=== PATIENT | female | born 1975 | race Asian ===

== ENCOUNTER 2016-10-03 16:32 | Inpatient (IN) | payer OTHER ==
[~2016-10-03] VITALS: Ht 152.4 cm; Wt 69.8 kg
[~2016-10-03 16:32] MED LIST: CALC600T11 PO; FERR240T9 PO; FOLI0.4T2 PO; IBUP800T25 PO; PERCOCET PO; PRENAT PO
[2016-10-03 17:02] VITALS: Ht 152.4 cm; Wt 69.8 kg
[2016-10-03 17:03] VITALS: BP 114/68; PULSE 120; RESP 18
[2016-10-03] MEDS ORDERED: TERBUTALINE 1 MG/ML INJ SC ONE (18:00)
[2016-10-03] MEDS: LACTATED RINGER'S 1,000 ML IV* SCH (18:09)
--- NOTE | 2016-10-03 18:21 | RADRPT ---
PROCEDURE: OB ultrasound for biophysical profile CLINICAL INDICATION: labor. TECHNIQUE: Multiple sonographic images of the pelvis were obtained. Transabdominal view of the gr avid uterus are available for review. The images were reviewed on a PACS workstation. COMPARISON: None FINDINGS: breathing movement = 2/2 tone = 2/2 motion = 2/2 Quantitative amniotic fluid volume = 2/2 TL = 26.3 cm consistent with polyhydramnios. Single live intrauterine with cardiac activity at 158 beats per minute. There is a posterior placenta without previa. IMPRESSION: 1. Single living intrauterine gestation in cephalic position. 2. Biophysical profile = 8/8. 3. TL = 26.3 cm consistent with polyhydramnios. RPTAT: [facility] Physician Keaton Date Time Electronically viewed and signed by Physician Keaton on 10/03/2016 18:21 /
[2016-10-03 18:26] LABS: ABNORMAL IP MESSAGE 1; ADD SCAN DIFF NO; BASOPHILS % 0.2 % (0.0-2.0); EOSINOPHILS % 0.3 % (0.0-7.0); HEMATOCRIT 35.1 % (37.0-47.0); HEMOGLOBIN 12.2 g/dl (12.0-16.0); LYMPHOCYTES # 0.5 10^3/ul (0.8-2.9); MEAN CORPUSCULAR HEMOGLOBIN 33.3 pg (29.0-33.0); MEAN CORPUSCULAR HGB CONC 34.8 g/dl (32.0-37.0); MEAN CORPUSCULAR VOLUME 95.9 fl (82.0-101.0); MEAN PLATELET VOLUME 10.2 fl (7.4-10.4); MONOCYTE # 0.4 10^3/ul (0.3-0.9); NEUTROPHIL # 5.5 10^3/ul (1.6-7.5); PLATELET COUNT 167 10^3/UL (140-415); RED BLOOD COUNT 3.66 10^6/ul (4.20-5.40); RED CELL DISTRIBUTION WIDTH 14.9 % (11.5-14.5); WHITE BLOOD COUNT 6.5 10^3/ul (4.8-10.8)
[2016-10-03 18:39] LABS: ADD UMIC YES; URINE BILIRUBIN (Dip) NEGATIVE (NEGATIVE); URINE BLOOD (Dip) NEGATIVE (NEGATIVE); URINE COLOR LT. YELLOW (YELLOW); URINE GLUCOSE (Dip) NEGATIVE (NEGATIVE); URINE KETONES (Dip) 40 (NEGATIVE); URINE LEUKOCYTE ESTERASE (Dip) 2+ (NEGATIVE); URINE NITRITE (Dip) NEGATIVE (NEGATIVE); URINE TOTAL PROTEIN (Dip) NEGATIVE (NEGATIVE); URINE UROBILINOGEN (Dip) 0.2 E.U./dL (0.1-1.0)
[2016-10-03 18:52] LABS: SQUAMOUS EPITHELIAL CELL,UR FEW; URINE RBCS NONE SEEN /HPF (0)
[2016-10-03] MEDS ORDERED: SOD CHLORIDE 0.9% 1,000 ML IV SCH (19:52)
[2016-10-03] MEDS ORDERED: AL HYDROX/MG HYDROX/SIMETH 30 ML CUP PO PRN (20:00)
[2016-10-03] MEDS ORDERED: BETAMET NA PHOS/AC(6 MG/ML) 5ML INJ IM SCH (20:00)
[2016-10-03] MEDS ORDERED: ACETAMINOPHEN 325 MG TAB PO PRN (20:00)
[2016-10-03] MEDS ORDERED: MAGNESIUM SULFATE 4 GM/100 ML 100 ML IV ONE (20:00)
--- NOTE | 2016-10-03 20:05 | HP ---
Date/Time of Note Date/Time of Note DATE: 10/03/16 TIME: 19:57 OB - History Hx of Present Free Text/Dictation 41 y/o female at 34 weeks referred to triage C/O fever since yesterday ; denies GI and symptoms Claims she has been congested chronically Last Menstrual Period: Feb 03, 2016 Estimated Due Date: Nov 08, 2016 : 2 Para: 1 Care: Good Care Ultrasounds: Normal mid trimester US Obstetrical Complications: Other (AMA) Medical Complications: None Past Family/Social History * Past Medical, Surgical, Family and Obstetric Histories reviewed from chart. Blood Type: O+ Rubella: immune RPR/VDRL: Negative GBS Status: Unknown HBsAG: Negative OB Admission Exam Vital Signs Vital Signs Vital Signs Date Time Temp Pulse Resp B/P Pulse Ox O2 Delivery O2 Flow Rate FiO2 10/03/16 17:03 98.7 120 18 114/68 Room Air Physical Exam HEENT: WNL Heart: Rhythm Normal Lungs: Clear, Equal Abdomen: WNL Extremities: Normal Reflexes: Normal Cervical Dilatation: Fingertip Effacement: 0% Station: -3 Membranes: Intact Heart Rate: 150's Accelerations: Accelerations Present Decelerations: No Decelerations Varibility: Moderate Contractions on Admission: < 5 Minutes Apart Date/Time Contractions Began: ? Frequency of Contractions: ? Duration: ? Intensity: Mild Last 72 hours Lab Results CBC & BMP 10/03/16 18:00 OB Assessment/Plan Reason for admission: labor Other Assessment: 34 weeks gestation AMA ?UTI(left shift on CBC) uterine contractions Other plan: start on IV ABs and Magnesium sulfate steroids for lung maturity RITU AGRAWAL MD October 03, 2016 20:04
[2016-10-03 20:17] LABS: ALBUMIN 3.4 g/dl (3.3-4.9)
[2016-10-03 20:18] LABS: POTASSIUM 3.9 mmol/L (3.5-5.1)
[2016-10-03 20:19] LABS: INR 1.07; PROTIME 13.9 Sec (12.2-14.2); PT RATIO 1.1
[2016-10-03 20:20] LABS: BILIRUBIN,INDIRECT 0.7 mg/dl (0-1.1); BILIRUBIN,TOTAL 0.7 mg/dl (0.2-1.3); CREATININE 0.45 mg/dl (0.44-1.00); PARTIAL THROMBOPLASTIN TIME 31.5 Sec (25.0-35.0)
[2016-10-03 20:21] LABS: ALBUMIN/GLOBULIN RATIO 1.06; CALCIUM 8.1 mg/dl (8.4-10.2); TOTAL PROTEIN 6.6 g/dl (6.1-8.1)
[2016-10-03] MEDS ORDERED: MAGNESIUM SULFATE 20 GM/500 ML 500 ML IV SCH (20:30)
--- NOTE | 2016-10-03 21:22 | TRIAGE ---
OB Triage Datetime Report Generated by CPN: 10/03/2016 21:22 Datetime: 10/03/2016 19:50 Monitor Mode: External US FHR Baseline Changes: No Baseline Change Variability: Moderate 6-25 bpm Accelerations: 15X15 Decelerations: None Category: Category I Datetime: 10/03/2016 19:20 Stage of : OB Triage Maternal Assessment Level of Consciousness: Fully Conscious Headache: Denies Blurred Vision: No Respiratory Effort: Unlabored Nausea/Vomiting: Denies RUQ Epigastric Pain: Denies Facial Edema: None Labor Evaluation Frequency: 2-5 Monitor Mode: External Duration (sec)2399: 60-90 Quality: Mild Pattern: Normal: <= 5 Contractions in 10 Minutes Resting Tone [place]: Relaxed Heart Rate FHR Baseline Rate: 145 Monitor Mode: External US FHR Baseline Changes: No Baseline Change Variability: Moderate 6-25 bpm Accelerations: 15X15 Decelerations: None Category: Category I Pain Assessment Pain Scale: 3 Pain Presence: Intermittent Pain Type: Cramping Pain Location: Abdomen Datetime: 10/03/2016 19:00 Stage of : OB Triage Maternal Assessment Level of Consciousness: Fully Conscious Labor Evaluation Frequency: 2-7 Monitor Mode: External Duration (sec)2399: 60-150 Quality: Mild Resting Tone [place]: Relaxed Heart Rate FHR Baseline Rate: 145 Monitor Mode: External US Variability: Moderate 6-25 bpm Accelerations: 15X15 Decelerations: None Pain Assessment Pain Scale: 0 Pain Presence: None/Denies Pain Goal: 3 Membrane Status: Intact Vaginal Bleeding: None Datetime: 10/03/2016 18:20 Vaginal Exam Dilatation (cms): 1.0 Effacement (%): 40 Station: -2 Exam By: omi Vaginal Bleeding: None Cervix, Consistency: Firm Cervix, Position: Midposition Datetime: 10/03/2016 18:00 Stage of : OB Triage Maternal Assessment Level of Consciousness: Fully Conscious Labor Evaluation Frequency: 2-13 Monitor Mode: External Quality: Mild Resting Tone [place]: Relaxed Heart Rate FHR Baseline Rate: 145 Monitor Mode: External US Variability: Moderate 6-25 bpm Accelerations: 15X15 Decelerations: None Category: Category I Pain Assessment Pain Scale: 0 Pain Presence: None/Denies Pain Goal: 3 Membrane Status: Intact Vaginal Bleeding: None Datetime: 10/03/2016 16:56 Assessment Type: Triage Maternal Assessment Level of Consciousness: Fully Conscious DTR's/Clonus: DTRs 2+; No Clonus Headache: Denies Blurred Vision: No Respiratory Effort: Unlabored; Regular Rhythm; Equal Expansion Breath Sounds, Left: Clear and Equal Breath Sounds, Right: Clear and Equal Nausea/Vomiting: Denies RUQ Epigastric Pain: Denies Lower Extremities Edema: None Degree: None Upper Extremities Edema: None Degree: None Facial Edema: None Fall Risk Assessment History of Falling: (0) No Secondary Diagnosis: (0) No Ambulatory Aid: (0) Bedrest/Nurse Assist IV Therapy: (0) No Gait: (0) Normal/Bedrest/Immobile Mental Status: (0) Oriented to Own Ability Fall Score: 0 Fall Risk Score Definition: No Risk: No action required Datetime: 10/03/2016 16:51 Time of Arrival: 10/03/2016 16:25 EGA: 34.6 Arrived By: Ambulatory Arrived From: Home Chief Complaint: PT HERE C/O CHILLS AND "FEELING FEVERISH" Movement: Decreased Contractions: Denies/Absent Rupture of Membranes: Denies Vaginal Bleeding: None Vaginal Discharge: Denies Recent Sexual Intercouse: Denies Abdominal Trauma: Not Applicable Patient Complaints: None Time Provider Notified: 10/03/2016 17:45 Provider Notified: MIA Initial Plan: IV HYDRATION, SVE, CBC, UA, TERB, BPP Datetime: 10/03/2016 16:49 Monitor Mode: External Monitor Mode: External US
[2016-10-03] MEDS ORDERED: SENNA TAB PO SCH (22:00)
[2016-10-03] MEDS ORDERED: MAGNESIUM HYDROXIDE 30ML CUP PO PRN (22:00)
[2016-10-03] MEDS: CEFTRIAXONE 1 GM/50 ML (PMX) 50 ML IVPB SCH (23:03)
[2016-10-04] MEDS: LACTATED RINGER'S 1,000 ML IV* SCH ×3 (00:40→20:40)
--- NOTE | 2016-10-04 06:32 | RADRPT ---
PROCEDURE: OB ultrasound for biophysical profile CLINICAL INDICATION: labor TECHNIQUE: Multiple sonographic images of the pelvis were obtained. Transabdominal views of the g ravid uterus are available for review. The images were reviewed on a PACS workstation. COMPARISON: None FINDINGS: breathing movement = 2/2 tone = 2/2 motion = 2/2 TL = 2/2 (single pocket greater than 2 cm) TL = 22.9 cm Single live intrauterine with cardiac activity of 118 bpm. position is cephal ic. The placenta is posterior. IMPRESSION: 1. Single live intrauterine gestation. 2. Biophysical profile = 8. 3. TL = 22.9 cm. RPTAT: HH .Demi Noland MD, Date Time Electronically viewed and signed by .Demi Noland MD, on 10/04/2016 06:31 .G/
[2016-10-04] MEDS ORDERED: SENNA TAB PO SCH (09:00)
[2016-10-04] MEDS ORDERED: FERROUS SULFATE (EC) 325 MG TAB PO SCH (09:00)
[2016-10-04] MEDS ORDERED: MULTIVIT/MIN/FOLATE/IRON/PREN TAB PO SCH (09:00)
[2016-10-04] MEDS ORDERED: DOCUSATE SODIUM 100 MG CAP PO SCH (09:00)
[2016-10-04] MEDS ORDERED: DOCUSATE SODIUM 100 MG CAP PO PRN (12:30)
[2016-10-04] MEDS ORDERED: ACETAMINOPHEN 325 MG TAB PO PRN (12:30)
[2016-10-04] MEDS ORDERED: AL HYDROX/MG HYDROX/SIMETH 30 ML CUP PO PRN (12:30)
--- NOTE | 2016-10-04 17:49 | QN ---
Documentation Comment No C/O U/C on EFM no U/C seen will D/C gome on PO Nifedipine RITU AGRAWAL MD October 04, 2016 17:49
--- NOTE | 2016-10-04 18:10 | DS ---
Date/Time of Note Date/Time of Note DATE: 10/04/16 TIME: 18:08 Obstetrical Discharge Record Final Diagnosis Final Diagnosis: not delivered Other Final Diagnosis contractions Complications Tocolytics: Magnesium Sulfate, Other (Nifedipine ) Condition on Discharge Physical Assessment Voiding: Yes Bowel Movement: Yes Breast: Soft, non-tender, Filling Fundus: Other (gravid ) Abdomen and Incision: Soft BS : Gravid Episiotomy: NA Calf Tenderness: No Patient Condition: Good RITU AGRAWAL MD October 04, 2016 18:10
--- NOTE | 2016-10-04 18:13 | PD.PPDC ---
[facility] [employer] [employer] Discharge Instruction Provider Information Physician Information 41 y/o female at 34 + weeks admitted for labor which subsided Diagnosis Final Diagnosis: labor: resolved Condition Patient Condition: Good Activity/Restrictions Activity: Bedrest May Shower Restrictions: No Exercising No Lifting Nothing in the Vagina Follow-up Follow-up with Physician: 1, Week/Weeks (in clinic ) Return to clinic for DIE WELDER Instructions: Worsening abdominal pain Excessive Vaginal Bleeding RITU AGRAWAL MD October 04, 2016 18:13
[2016-10-04] MEDS: NIFEdipine 10 MG CAP PO SCH ×2 (18:26→23:41)
[2016-10-04] MEDS ORDERED: NIFEdipine 10 MG CAP PO SCH (18:30)
[2016-10-04 19:07] LABS: ADD SCAN DIFF NO
[2016-10-04 19:09] LABS: ABNORMAL IP MESSAGE 1; HEMATOCRIT 32.5 % (37.0-47.0); LYMPHOCYTES # 0.5 10^3/ul (0.8-2.9); LYMPHOCYTES % 12.9 % (15.0-51.0); MEAN CORPUSCULAR HEMOGLOBIN 32.6 pg (29.0-33.0); MEAN CORPUSCULAR HGB CONC 33.8 g/dl (32.0-37.0); MEAN CORPUSCULAR VOLUME 96.4 fl (82.0-101.0); MEAN PLATELET VOLUME 9.6 fl (7.4-10.4); MONOCYTE # 0.3 10^3/ul (0.3-0.9); MONOCYTES % 6.5 % (0.0-11.0); NEUTROPHIL # 3.2 10^3/ul (1.6-7.5); NEUTROPHILS % 79.9 % (39.0-77.0); PLATELET COUNT 168 10^3/UL (140-415); RED BLOOD COUNT 3.37 10^6/ul (4.20-5.40); RED CELL DISTRIBUTION WIDTH 15.1 % (11.5-14.5)
[2016-10-04] MEDS ORDERED: BETAMET NA PHOS/AC(6 MG/ML) 5ML INJ IM SCH ×2 (20:00→23:00)
[2016-10-04] MEDS: CEFTRIAXONE 1 GM/50 ML (PMX) 50 ML IVPB SCH (21:07)
[2016-10-04] MEDS: SOD CHLORIDE 0.9% 1,000 ML IV SCH (21:07)
[2016-10-05] MEDS: LACTATED RINGER'S 1,000 ML IV* SCH (03:20)
[2016-10-05] MEDS: SOD CHLORIDE 0.9% 1,000 ML IV SCH (05:00)
[2016-10-05] MEDS: NIFEdipine 10 MG CAP PO SCH (06:12)
[2016-10-05] MEDS ORDERED: DOCUSATE SODIUM 100 MG CAP PO PRN (09:00)
[2016-10-05] MEDS ORDERED: FERROUS SULFATE (EC) 325 MG TAB PO SCH (09:00)
[2016-10-05] MEDS ORDERED: MULTIVIT/MIN/FOLATE/IRON/PREN TAB PO SCH (09:00)
[2016-10-05] MEDS ORDERED: BETAMET NA PHOS/AC(6 MG/ML) 5ML INJ IM SCH (20:00)
== END 2016-10-05 09:53 | disposition home or self-care (01) | DRG 780 ==
LOC: OBT 16:32 → L-D 16:33 → OBG 19:50 → OBT 19:50 → L-D 21:33 → OBG 23:21
PROVIDERS: ADMIT Obstetrics & Gynecology; ATTEND Obstetrics & Gynecology
DX: O47.03 False labor before 37 completed weeks of gestation, third trimester (principal); O09.523 Supervision of elderly multigravida, third trimester; Z3A.34 34 weeks gestation of pregnancy
CPT/HCPCS: 36415; 76818; 80053; 81001; 81003; 83735; 85025; 85610; 85730; 86900; 86901; 87040; 87086; 96360; 96361; G0463; J0696; J0702; J3105; J3475; J7030; J7120

== ENCOUNTER 2016-10-11 13:10 | Outpatient (CLI) | payer OTHER ==
[~2016-10-11] VITALS: Ht 165.1 cm; Wt 68.6 kg
[~2016-10-11 13:10] MED LIST changes: -FOLI0.4T2 PO; -IBUP800T25 PO; -PERCOCET PO
[2016-10-11] MEDS ORDERED: PRO20 PO (13:31)
[2016-10-11] MEDS ORDERED: NITR-58 PO (13:31)
[2016-10-11 13:32] VITALS: BP 118/74; PULSE 107; RESP 18; Ht 165.1 cm; Wt 68.6 kg
--- NOTE | 2016-10-11 14:11 | RADRPT ---
PROCEDURE: OB ultrasound for biophysical profile CLINICAL INDICATION: Contractions TECHNIQUE: Multiple sonographic images of the pelvis were obtained. Transabdominal view of the gr avid uterus are available for review. The images were reviewed on a PACS workstation. COMPARISON: OB ultrasound 10/04/2016 FINDINGS: breathing movement = 2/2 tone = 2/2 motion = 2/2 TL = 2/2 TL = 23.5 cm consistent with borderline polyhydramnios. Single live intrauterine with cardiac activity. heart rate equals 134 beats p er minute. Presentation is cephalic. The placenta is posterior. IMPRESSION: 1. Single viable intrauterine gestation. 2. Biophysical profile = 8/8. 3. TL = 23.5 cm. RPTAT: KK .Toby Gurrola MD, MD Date Time Electronically viewed and signed by .Toby Gurrola MD, MD on 10/11/2016 14:10 .B/
[2016-10-11 15:11] LABS: ADD SCAN DIFF NO
[2016-10-11 15:13] LABS: BASOPHILS % 0.4 % (0.0-2.0); EOSINOPHILS % 0.7 % (0.0-7.0); HEMOGLOBIN 12.9 g/dl (12.0-16.0); LYMPHOCYTES # 1.8 10^3/ul (0.8-2.9); LYMPHOCYTES % 31.8 % (15.0-51.0); MEAN CORPUSCULAR HEMOGLOBIN 33.7 pg (29.0-33.0); MEAN CORPUSCULAR HGB CONC 35.8 g/dl (32.0-37.0); MEAN PLATELET VOLUME 10.4 fl (7.4-10.4); MONOCYTE # 0.4 10^3/ul (0.3-0.9); MONOCYTES % 6.2 % (0.0-11.0); NEUTROPHIL # 3.4 10^3/ul (1.6-7.5); NEUTROPHILS % 60.5 % (39.0-77.0); PLATELET COUNT 220 10^3/UL (140-415); RED BLOOD COUNT 3.83 10^6/ul (4.20-5.40); RED CELL DISTRIBUTION WIDTH 13.8 % (11.5-14.5); WHITE BLOOD COUNT 5.6 10^3/ul (4.8-10.8)
[2016-10-11 15:16] LABS: ADD UMIC YES; URINE BILIRUBIN (Dip) 1+ (NEGATIVE); URINE BLOOD (Dip) NEGATIVE (NEGATIVE); URINE COLOR AMBER (YELLOW); URINE GLUCOSE (Dip) NEGATIVE (NEGATIVE); URINE KETONES (Dip) NEGATIVE (NEGATIVE); URINE LEUKOCYTE ESTERASE (Dip) 1+ (NEGATIVE); URINE NITRITE (Dip) NEGATIVE (NEGATIVE); URINE TOTAL PROTEIN (Dip) TRACE (NEGATIVE); URINE UROBILINOGEN (Dip) 0.2 E.U./dL (0.1-1.0)
[2016-10-11 15:25] LABS: ICTOTEST POSITIVE (NEGATIVE); URINE RBCS 0-2 /HPF (0)
[2016-10-11 15:26] LABS: BACTERIA,URINE OCCASIONAL
[2016-10-11 15:29] LABS: ALBUMIN 3.1 g/dl (3.3-4.9)
[2016-10-11 15:32] LABS: BILIRUBIN,INDIRECT 0.1 mg/dl (0-1.1); BILIRUBIN,TOTAL 0.1 mg/dl (0.2-1.3); CREATININE 0.53 mg/dl (0.44-1.00); TOTAL PROTEIN 6.2 g/dl (6.1-8.1)
[2016-10-11 15:33] LABS: CALCIUM 8.4 mg/dl (8.4-10.2); URIC ACID 6.6 mg/dl (3.1-7.9)
[2016-10-11 15:46] LABS: INR 0.84; PARTIAL THROMBOPLASTIN TIME 28.3 Sec (25.0-35.0); PROTIME 11.5 Sec (12.2-14.2); PT RATIO 0.9
[2016-10-11 16:05] LABS: FIBRIN SPLIT PRODUCT <10 ug/ml (<10)
--- NOTE | 2016-10-11 16:17 | QN ---
Documentation Comment 41 y/o female here for ? PIH currently asymptomatic ie( noheadache , blurred vision or epigastric pain) NST R BPP 8/8 TL>20cm patient has trace proteinuria and uric acid is 6.6 mild PIH can not be ruled out will place patient on bed rest and obtain 24hr urine collection for protein and creatinine clearance needs antepartum testing biweekly RITU AGRAWAL MD October 11, 2016 16:17
--- NOTE | 2016-10-11 17:01 | TRIAGE ---
OB Triage Datetime Report Generated by CPN: 10/11/2016 17:00 Datetime: 10/11/2016 15:30 Stage of : OB Triage Maternal Assessment Level of Consciousness: Fully Conscious Labor Evaluation Frequency: 6UC/HR Monitor Mode: External Duration (sec)2399: 100-120 Quality: Mild Resting Tone [place]: Relaxed Heart Rate FHR Baseline Rate: 125 Monitor Mode: External US Variability: Moderate 6-25 bpm Accelerations: 15X15 Decelerations: Variable Comments: DR. MIA NOTIFIED OF VARIABLE DECEL. Pain Assessment Pain Scale: 0 Pain Goal: 3 Vaginal Exam Membrane Status: Intact Vaginal Bleeding: None Datetime: 10/11/2016 14:30 Stage of : OB Triage Maternal Assessment Level of Consciousness: Fully Conscious Labor Evaluation Frequency: 10-12 Monitor Mode: External Duration (sec)2399: 100-120 Quality: Mild Resting Tone [place]: Relaxed Heart Rate FHR Baseline Rate: 125 Monitor Mode: External US Variability: Moderate 6-25 bpm Accelerations: 15X15 Decelerations: None Pain Assessment Pain Scale: 0 Pain Goal: 3 Vaginal Exam Membrane Status: Intact Vaginal Bleeding: None Datetime: 10/11/2016 13:28 Assessment Type: Ongoing Assessment Maternal Assessment Level of Consciousness: Fully Conscious DTR's/Clonus: DTRs 2+; No Clonus Headache: Denies Blurred Vision: No Respiratory Effort: Unlabored; Regular Rhythm; Equal Expansion Breath Sounds, Left: Clear and Equal Breath Sounds, Right: Clear and Equal Nausea/Vomiting: Denies RUQ Epigastric Pain: Denies Lower Extremities Edema: None Degree: None Upper Extremities Edema: None Degree: None Facial Edema: None Fall Risk Assessment History of Falling: (0) No Secondary Diagnosis: (0) No Ambulatory Aid: (0) Bedrest/Nurse Assist IV Therapy: (0) No Gait: (0) Normal/Bedrest/Immobile Mental Status: (0) Oriented to Own Ability Fall Score: 0 Fall Risk Score Definition: No Risk: No action required Datetime: 10/11/2016 13:26 Time of Arrival: 10/11/2016 13:00 EGA: 36.0 Arrived By: Ambulatory Arrived From: [facility] Chief Complaint: PT SENT IN FOR R/O PTL Movement: Present Contractions: Denies/Absent Rupture of Membranes: Denies Vaginal Bleeding: None Vaginal Discharge: Denies Recent Sexual Intercouse: Denies Abdominal Trauma: Not Applicable Patient Complaints: None Provider Notified: MIA Initial Plan: NST/BPP/PIH PANEL Datetime: 10/11/2016 13:23 Monitor Mode: External Monitor Mode: External US Datetime: 10/05/2016 08:32 Stage of : Antepartum Heart Rate FHR Baseline Rate: 115 Monitor Mode: External US Variability: Moderate 6-25 bpm Accelerations: 15X15 Decelerations: None Category: Category I Comments: fht's verified through pulse ox and rn can audibly hear fht's Pain Assessment Pain Scale: 0 Pain Presence: None/Denies Datetime: 10/05/2016 08:31 Assessment Type: Ongoing Assessment Maternal Assessment Level of Consciousness: Fully Conscious Maternal Assessment Level of Consciousness: Fully Conscious DTR's/Clonus: DTRs 2+; No Clonus Headache: Denies Headache: Denies Blurred Vision: No Blurred Vision: No Respiratory Effort: Unlabored; Regular Rhythm; Equal Expansion Respiratory Effort: Unlabored Breath Sounds, Left: Clear and Equal Breath Sounds, Left: Clear and Equal Breath Sounds, Right: Clear and Equal Breath Sounds, Right: Clear and Equal Nausea/Vomiting: Denies Nausea/Vomiting: Denies RUQ Epigastric Pain: Denies RUQ Epigastric Pain: Denies Lower Extremities Edema: None Degree: None Upper Extremities Edema: None Degree: None Facial Edema: None Fall Risk Assessment History of Falling: (0) No Secondary Diagnosis: (0) No Ambulatory Aid: (0) Bedrest/Nurse Assist Gait: (0) Normal/Bedrest/Immobile Mental Status: (0) Oriented to Own Ability Datetime: 10/05/2016 08:09 Heart Rate FHR Baseline Rate: 115 Variability: Moderate 6-25 bpm Accelerations: 15X15 Decelerations: None Datetime: 10/05/2016 08:04 Heart Rate FHR Baseline Rate: 120 Variability: Moderate 6-25 bpm Accelerations: 15X15 Datetime: 10/05/2016 07:00 Stage of : Antepartum Labor Evaluation Frequency: OCC Monitor Mode: External Duration (sec)2399: 40 Quality: Mild Resting Tone [place]: Relaxed Contraction Comments: IRRITABILITY NOTED Heart Rate FHR Baseline Rate: 110 Monitor Mode: External US Variability: Moderate 6-25 bpm Accelerations: 15X15 Decelerations: None Category: Category I Datetime: 10/05/2016 06:12 Pain Assessment Pain Scale: 0 Pain Presence: None/Denies Pain Type: N/A Pain Assessment Comments: PT DENIES FEELING ANY PAIN, UC'S OR CRAMPING. PT STATES SHE IS ABLE TO S LEEP Datetime: 10/05/2016 06:00 Stage of : Antepartum Labor Evaluation Frequency: IRREG Monitor Mode: External Duration (sec)2399: 50-160 Quality: Mild Resting Tone [place]: Relaxed Contraction Comments: IRRITABILITY NOTED Heart Rate FHR Baseline Rate: 110 Monitor Mode: External US Variability: Moderate 6-25 bpm Accelerations: 15X15 Decelerations: None Category: Category I Datetime: 10/05/2016 05:00 Stage of : Antepartum Labor Evaluation Frequency: x4 Monitor Mode: External Duration (sec)2399: 50-120 Quality: Mild Resting Tone [place]: Relaxed Contraction Comments: IRRITABILITY NOTED Heart Rate FHR Baseline Rate: 115 Monitor Mode: External US FHR Baseline Changes: No Baseline Change Variability: Moderate 6-25 bpm Accelerations: 15X15 Decelerations: None Category: Category I Datetime: 10/05/2016 04:45 Pain Assessment Pain Scale: 0 Pain Presence: None/Denies Pain Type: N/A Pain Goal: 0 Pain Assessment Comments: pt states she is not feeling anymore cramping "just the big one an hour ago _ baby moving" Datetime: 10/05/2016 04:00 Stage of : Antepartum Labor Evaluation Frequency: x3 Monitor Mode: External Duration (sec)2399: 70-150 Quality: Mild Resting Tone [place]: Relaxed Heart Rate FHR Baseline Rate: 115 Monitor Mode: External US Variability: Moderate 6-25 bpm Accelerations: 15X15 Decelerations: None Category: Category I Datetime: 10/05/2016 03:38 Temperature Route: Oral Pain Assessment Pain Scale: 2 Pain Presence: Intermittent Pain Type: Cramping Pain Location: Abdomen Pain Goal: 0 Pain Relief Measures: Comfort Measures Pain Assessment Comments: PT STATES "I RECENTLY FELT 2 CONTRACTIONS" Datetime: 10/05/2016 03:35 Monitor Mode: Palpation Resting Tone [place]: Relaxed Datetime: 10/05/2016 03:00 Stage of : Antepartum Labor Evaluation Frequency: x3 Monitor Mode: External Duration (sec)2399: 60-120 Quality: Mild Resting Tone [place]: Relaxed Heart Rate FHR Baseline Rate: 120 Monitor Mode: External US Variability: Moderate 6-25 bpm Accelerations: 15X15 Decelerations: None Category: Category I Datetime: 10/05/2016 02:00 Stage of : Antepartum Labor Evaluation Frequency: X1 Monitor Mode: External Duration (sec)2399: 40 Quality: Mild Resting [place]one [place]: Relaxed Contraction Comments: IRRITABILITY NOTED; PT DENIES FEELING ANY CRAMPING Heart Rate FHR Baseline Rate: 115 Monitor Mode: External US Variability: Moderate 6-25 bpm Accelerations: 15X15 Decelerations: None Category: Category I Datetime: 10/05/2016 01:51 Monitor Mode: Palpation Resting Tone [place]: Relaxed Datetime: 10/05/2016 01:00 Stage of : Antepartum Labor Evaluation Frequency: 0 Monitor Mode: External Resting [place]one [place]: Relaxed Heart Rate FHR Baseline Rate: 115 Monitor Mode: External US Variability: Moderate 6-25 bpm Accelerations: 15X15 Decelerations: None Category: Category I Datetime: 10/05/2016 00:38 Monitor Mode: Palpation Resting Tone [place]: Relaxed Datetime: 10/05/2016 00:00 Stage of : Antepartum Labor Evaluation Frequency: X1 Monitor Mode: External Duration (sec)2399: 60 Quality: Mild Resting [place]one [place]: Relaxed Contraction Comments: IRRITABILITY NOTED Heart Rate FHR Baseline Rate: 115 Monitor Mode: External US Variability: Moderate 6-25 bpm Accelerations: 15X15 Decelerations: None Category: Category I Datetime: 10/04/2016 23:49 Monitor Mode: Palpation Resting Tone [place]: Relaxed Datetime: 10/04/2016 23:40 Temperature Route: Oral Comments: + MOVEMENT. PT STATES "BABY IS MOVING A LOT" Pain Assessment Pain Scale: 0 Pain Presence: None/Denies Pain Type: N/A Pain Assessment Comments: PT DENIES FEELING OF ANY PAIN OR CRAMPING Datetime: 10/04/2016 23:00 Stage of : Antepartum Labor Evaluation Frequency: X1 Monitor Mode: External Duration (sec)2399: 90 Quality: Mild Resting [place]one [place]: Relaxed Contraction Comments: IRRITABILITY NOTED Heart Rate FHR Baseline Rate: 115 Monitor Mode: External US Variability: Moderate 6-25 bpm Accelerations: 15X15 Decelerations: None Category: Category I Datetime: 10/04/2016 22:00 Stage of : Antepartum Labor Evaluation Frequency: 0 Monitor Mode: External Resting [place]one [place]: Relaxed Contraction Comments: UTERINE IRRITABILITY, PT DENIES FEELING ANY CRAMPING Heart Rate FHR Baseline Rate: 115 Monitor Mode: External US Variability: Moderate 6-25 bpm Accelerations: 15X15 Decelerations: None Category: Category I Datetime: 10/04/2016 21:05 Monitor Mode: Palpation Resting [place]one [place]: Relaxed Datetime: 10/04/2016 21:00 Stage of : Antepartum Labor Evaluation Frequency: X1 Monitor Mode: External Duration (sec)2399: 120 Quality: Mild Resting Tone [place]: Relaxed Contraction Comments: PT DENIES FEELING ANY CRAMPING OR PAIN Heart Rate FHR Baseline Rate: 125 Monitor Mode: External US Variability: Moderate 6-25 bpm Accelerations: 15X15 Decelerations: None Category: Category I Datetime: 10/04/2016 20:32 Comments: + movement per pt Datetime: 10/04/2016 20:00 Stage of : Antepartum Labor Evaluation Frequency: 0 Monitor Mode: External Resting [place]one [place]: Relaxed Contraction Comments: PT DENIES FEELING OF ANY PAIN, UC'S OR CRAMPING Heart Rate FHR Baseline Rate: 115 Monitor Mode: External US Variability: Moderate 6-25 bpm Accelerations: 15X15 Decelerations: None Category: Category I Datetime: 10/04/2016 19:26 Assessment Type: Ongoing Assessment Maternal Assessment Level of Consciousness: Fully Conscious DTR's/Clonus: DTRs 2+; No Clonus Headache: Denies Blurred Vision: No Respiratory Effort: Unlabored; Regular Rhythm; Equal Expansion Breath Sounds, Left: Clear and Equal Breath Sounds, Right: Clear and Equal Nausea/Vomiting: Denies RUQ Epigastric Pain: Denies Lower Extremities Edema: None Degree: None Upper Extremities Edema: None Degree: None Facial Edema: None Temperature Route: Oral Fall Risk Assessment History of Falling: (0) No Secondary Diagnosis: (0) No Ambulatory Aid: (0) Bedrest/Nurse Assist IV Therapy: (20) Yes Gait: (0) Normal/Bedrest/Immobile Mental Status: (0) Oriented to Own Ability Fall Score: 20 Fall Risk Score Definition: No Risk: No action required Pain Assessment Pain Scale: 0 Pain Presence: None/Denies Pain Type: N/A Pain Assessment Comments: pt denies of any pain or cramping Datetime: 10/04/2016 19:05 Labor Evaluation Frequency: 0 Monitor Mode: External Heart Rate FHR Baseline Rate: 110 Monitor Mode: External US FHR Baseline Changes: No Baseline Change Variability: Moderate 6-25 bpm Accelerations: 15X15 Decelerations: None Category: Category I Datetime: 10/04/2016 18:15 Labor Evaluation Frequency: 0 Monitor Mode: External Resting [place]one [place]: Relaxed Heart Rate FHR Baseline Rate: 110 Monitor Mode: External US FHR Baseline Changes: No Baseline Change Variability: Moderate 6-25 bpm Accelerations: 15X15 Decelerations: None Category: Category I Datetime: 10/04/2016 17:00 Labor Evaluation Frequency: 0 Monitor Mode: External Resting Tone [place]: Relaxed Heart Rate FHR Baseline Rate: 110 Monitor Mode: External US FHR Baseline Changes: No Baseline Change Variability: Moderate 6-25 bpm Accelerations: 15X15 Decelerations: None Category: Category I Datetime: 10/04/2016 16:48 Stage of : Antepartum Datetime: 10/04/2016 16:46 Labor Evaluation Frequency: 0 Monitor Mode: External Resting [place]one [place]: Relaxed Heart Rate FHR Baseline Rate: 110 Monitor Mode: External US Datetime: 10/04/2016 16:42 Stage of : Labor Datetime: 10/04/2016 16:00 Stage of : Antepartum Labor Evaluation Frequency: 0 Monitor Mode: External Resting Tone [place]: Relaxed Monitor Mode: External US Datetime: 10/04/2016 15:08 Monitor Mode: External Duration (sec)2399: OCCASIONAL Resting Tone [place]: Relaxed Heart Rate FHR Baseline Rate: 110 Monitor Mode: External US FHR Baseline Changes: No Baseline Change Variability: Moderate 6-25 bpm Accelerations: 15X15 Decelerations: None Category: Category I Datetime: 10/04/2016 14:08 Stage of : Antepartum Datetime: 10/04/2016 14:01 Labor Evaluation Frequency: 0 Monitor Mode: External Resting [place]one [place]: Relaxed Heart Rate FHR Baseline Rate: 110 Monitor Mode: External US FHR Baseline Changes: No Baseline Change Variability: Moderate 6-25 bpm Accelerations: 15X15 Decelerations: None Category: Category I Datetime: 10/04/2016 13:58 Stage of : Antepartum Datetime: 10/04/2016 13:00 Labor Evaluation Frequency: 0 Monitor Mode: External Resting [place]one [place]: Relaxed Heart Rate FHR Baseline Rate: 110 Monitor Mode: External US FHR Baseline Changes: No Baseline Change Variability: Moderate 6-25 bpm Accelerations: 15X15 Decelerations: None Category: Category I Datetime: 10/04/2016 12:31 Stage of : Antepartum Temperature Route: Oral Pain Assessment Pain Scale: 0 Pain Presence: None/Denies Datetime: 10/04/2016 12:25 Labor Evaluation Frequency: X2/HR Monitor Mode: External Resting [place]one [place]: Relaxed Heart Rate FHR Baseline Rate: 115 Monitor Mode: External US FHR Baseline Changes: No Baseline Change Variability: Moderate 6-25 bpm Accelerations: 15X15 Decelerations: None Category: Category I Datetime: 10/04/2016 11:00 Labor Evaluation Frequency: OCCASIONAL Monitor Mode: External Resting [place]one [place]: Relaxed Heart Rate FHR Baseline Rate: 115 Monitor Mode: External US FHR Baseline Changes: No Baseline Change Variability: Moderate 6-25 bpm Accelerations: 15X15 Decelerations: None Category: Category I Datetime: 10/04/2016 10:00 Labor Evaluation Frequency: 0 Monitor Mode: External Resting [place]one [place]: Relaxed Heart Rate FHR Baseline Rate: 115 Monitor Mode: External US FHR Baseline Changes: No Baseline Change Variability: Moderate 6-25 bpm Accelerations: 15X15 Decelerations: None Category: Category I Datetime: 10/04/2016 09:00 Labor Evaluation Frequency: 0 Monitor Mode: External Resting [place]one [place]: Relaxed Heart Rate FHR Baseline Rate: 110 Monitor Mode: External US FHR Baseline Changes: No Baseline Change Variability: Moderate 6-25 bpm Accelerations: 15X15 Decelerations: None Category: Category I Datetime: 10/04/2016 08:46 Labor Evaluation Frequency: 0 Monitor Mode: External Resting [place]one [place]: Relaxed Heart Rate FHR Baseline Rate: 105 Monitor Mode: External US FHR Baseline Changes: No Baseline Change Variability: Moderate 6-25 bpm Accelerations: 15X15 Decelerations: None Category: Category I Datetime: 10/04/2016 07:53 Assessment Type: Ongoing Assessment Maternal Assessment Level of Consciousness: Fully Conscious DTR's/Clonus: DTRs 2+; No Clonus Headache: Denies Blurred Vision: No Respiratory Effort: Unlabored; Regular Rhythm; Equal Expansion Breath Sounds, Left: Clear and Equal Breath Sounds, Right: Clear and Equal Nausea/Vomiting: Denies RUQ Epigastric Pain: Denies Lower Extremities Edema: None Degree: None Upper Extremities Edema: None Degree: None Facial Edema: None Fall Risk Assessment History of Falling: (0) No Secondary Diagnosis: (0) No Ambulatory Aid: (0) Bedrest/Nurse Assist IV Therapy: (20) Yes Gait: (0) Normal/Bedrest/Immobile Mental Status: (0) Oriented to Own Ability Fall Score: 20 Fall Risk Score Definition: No Risk: No action required Datetime: 10/04/2016 07:48 Stage of : Antepartum Labor Evaluation Frequency: 0 Monitor Mode: External Resting [place]one [place]: Relaxed Heart Rate FHR Baseline Rate: 110 Monitor Mode: External US FHR Baseline Changes: No Baseline Change Variability: Moderate 6-25 bpm Accelerations: 15X15 Decelerations: None Category: Category I Datetime: 10/04/2016 07:47 Stage of : Antepartum Temperature Route: Oral Pain Assessment Pain Scale: 0 Pain Presence: None/Denies Pain Goal: 0 Datetime: 10/04/2016 07:43 Stage of : Antepartum Datetime: 10/04/2016 07:00 Stage of : Antepartum Labor Evaluation Frequency: occasional Monitor Mode: External Duration (sec)2399: 100-130 Quality: Mild Pattern: Normal: <= 5 Contractions in 10 Minutes Resting Tone [place]: Relaxed Heart Rate FHR Baseline Rate: 105 Monitor Mode: External US FHR Baseline Changes: Bradycardia Variability: Moderate 6-25 bpm Accelerations: 15X15 Category: Category II Datetime: 10/04/2016 06:00 Stage of : Antepartum Labor Evaluation Frequency: uterine irritiability Monitor Mode: External Duration (sec)2399: 0 Pattern: Normal: <= 5 Contractions in 10 Minutes Resting Tone [place]: Relaxed Heart Rate FHR Baseline Rate: 110 Monitor Mode: External US Variability: Moderate 6-25 bpm Accelerations: 15X15 Decelerations: None Category: Category I Pain Assessment Pain Scale: 0 Pain Presence: None/Denies Pain Type: N/A Pain Goal: 0 Pain Relief Measures: Comfort Measures Datetime: 10/04/2016 05:00 Stage of : Antepartum Labor Evaluation Frequency: irregular Monitor Mode: External Duration (sec)2399: 70-120 Quality: Mild Pattern: Normal: <= 5 Contractions in 10 Minutes Resting Tone [place]: Relaxed Contraction Comments: pt. denies feeling UC's or cramping. Heart Rate FHR Baseline Rate: 110 Monitor Mode: External US Variability: Moderate 6-25 bpm Accelerations: 15X15 Decelerations: None Category: Category I Datetime: 10/04/2016 04:45 Comments: maternal HR noted. Datetime: 10/04/2016 04:39 Comments: meternal HR noted. Datetime: 10/04/2016 04:11 Maternal Assessment Level of Consciousness: Fully Conscious DTR's/Clonus: DTRs 2+ Headache: Denies Blurred Vision: No Nausea/Vomiting: Denies RUQ Epigastric Pain: Denies Facial Edema: None Comments: maternal HR noted. pt. sitting at edge of bed leaning over. Datetime: 10/04/2016 04:00 Labor Evaluation Frequency: irregular Monitor Mode: External Duration (sec)2399: 90-120 Quality: Mild Pattern: Normal: <= 5 Contractions in 10 Minutes Resting Tone [place]: Relaxed Contraction Comments: pt. denies feeling UC's or cramping. Heart Rate FHR Baseline Rate: 120 Monitor Mode: External US Variability: Moderate 6-25 bpm Decelerations: None Category: Category I Datetime: 10/04/2016 03:22 Labor Evaluation Frequency: 2-7 Monitor Mode: External Duration (sec)2399: 60-90 Quality: Mild Pattern: Normal: <= 5 Contractions in 10 Minutes Resting Tone [place]: Relaxed Heart Rate FHR Baseline Rate: 120 Monitor Mode: External US Variability: Moderate 6-25 bpm Decelerations: None Category: Category I Pain Presence: None/Denies Pain Type: N/A Pain Assessment Comments: pt. moving in bed Datetime: 10/04/2016 02:00 Stage of : Antepartum Labor Evaluation Frequency: occasional Monitor Mode: External Duration (sec)2399: 70-110 Quality: Mild Pattern: Normal: <= 5 Contractions in 10 Minutes Resting Tone [place]: Relaxed Heart Rate FHR Baseline Rate: 130 Monitor Mode: External US Variability: Moderate 6-25 bpm Accelerations: 15X15 Decelerations: None Category: Category I Datetime: 10/04/2016 01:52 Maternal Assessment Level of Consciousness: Fully Conscious DTR's/Clonus: DTRs 2+ Headache: Denies Blurred Vision: No Nausea/Vomiting: Denies RUQ Epigastric Pain: Denies Facial Edema: None Datetime: 10/04/2016 01:30 Stage of : Antepartum Labor Evaluation Frequency: occasional Monitor Mode: External Duration (sec)2399: 60-70 Quality: Mild Pattern: Normal: <= 5 Contractions in 10 Minutes Resting Tone [place]: Relaxed Datetime: 10/04/2016 01:29 Heart Rate FHR Baseline Rate: 130 Monitor Mode: External US Variability: Moderate 6-25 bpm Decelerations: None Category: Category I Datetime: 10/04/2016 01:00 Stage of : Antepartum Labor Evaluation Frequency: 4-6 Monitor Mode: External Duration (sec)2399: 50-70 Quality: Mild Pattern: Normal: <= 5 Contractions in 10 Minutes Resting Tone [place]: Relaxed Heart Rate FHR Baseline Rate: 135 Monitor Mode: External US Variability: Moderate 6-25 bpm Accelerations: 15X15 Decelerations: None Category: Category I Pain Presence: None/Denies Pain Type: N/A Pain Assessment Comments: pt. sleeping equal respirations visible. Datetime: 10/04/2016 00:30 Labor Evaluation Frequency: x1 Monitor Mode: External Duration (sec)2399: 50 Pattern: Normal: <= 5 Contractions in 10 Minutes Resting Tone [place]: Relaxed Heart Rate FHR Baseline Rate: 135 Monitor Mode: External US Variability: Moderate 6-25 bpm Accelerations: 15X15 Decelerations: None Category: Category I Datetime: 10/03/2016 23:30 Stage of : Antepartum Maternal Assessment Level of Consciousness: Fully Conscious DTR's/Clonus: DTRs 2+; No Clonus Headache: Denies Breath Sounds, Left: Clear and Equal Breath Sounds, Right: Clear and Equal Nausea/Vomiting: Denies RUQ Epigastric Pain: Denies Datetime: 10/03/2016 23:00 Stage of : Antepartum Labor Evaluation Frequency: 0 Monitor Mode: External Pattern: Normal: <= 5 Contractions in 10 Minutes Resting Tone [place]: Relaxed Contraction Comments: some uterine irritiability noted. Heart Rate FHR Baseline Rate: 140 Monitor Mode: External US FHR Baseline Changes: No Baseline Change Variability: Moderate 6-25 bpm Accelerations: 15X15 Decelerations: None Category: Category I Datetime: 10/03/2016 22:30 Stage of : Antepartum Assessment Type: Admission Assessment Vaginal Bleeding: None Maternal Assessment Level of Consciousness: Fully Conscious DTR's/Clonus: DTRs 2+; No Clonus Headache: Denies Blurred Vision: No Respiratory Effort: Unlabored Breath Sounds, Left: Clear and Equal Breath Sounds, Right: Clear and Equal Nausea/Vomiting: Denies RUQ Epigastric Pain: Denies Lower Extremities Edema: None Degree: None Upper Extremities Edema: None Degree: None Facial Edema: None Fall Risk Assessment History of Falling: (0) No Secondary Diagnosis: (0) No Ambulatory Aid: (0) Bedrest/Nurse Assist IV Therapy: (20) Yes Gait: (0) Normal/Bedrest/Immobile Mental Status: (0) Oriented to Own Ability Fall Score: 20 Fall Risk Score Definition: No Risk: No action required Labor Evaluation Frequency: 0 Monitor Mode: External Duration (sec)2399: 0 Quality: Mild Pattern: Normal: <= 5 Contractions in 10 Minutes Resting Tone [place]: Relaxed Heart Rate FHR Baseline Rate: 140 Monitor Mode: External US Variability: Moderate 6-25 bpm Accelerations: 15X15 Accelerations: 10X10 Decelerations: None Category: Category I Pain Assessment Pain Scale: 0 Pain Assessment Pain Scale: 2 Pain Presence: None/Denies Pain Presence: Intermittent Pain Type: N/A Pain Type: Pressure Pain Location: Back Pain Goal: 0 Pain Goal: 1 Vaginal Exam Membrane Status: Intact Datetime: 10/03/2016 22:00 Stage of : Antepartum Labor Evaluation Frequency: irregular Monitor Mode: External Duration (sec)2399: 50-70 Quality: Mild Pattern: Normal: <= 5 Contractions in 10 Minutes Resting Tone [place]: Relaxed Contraction Comments: pt. states she does not feel UC's at ths time. Heart Rate FHR Baseline Rate: 150 Monitor Mode: External US Variability: Minimal - Undetectable to <=5 bpm Accelerations: 15X15 Decelerations: None Category: Category II Datetime: 10/03/2016 21:30 Stage of : Antepartum Maternal Assessment Level of Consciousness: Fully Conscious DTR's/Clonus: DTRs 2+; No Clonus Headache: Denies Blurred Vision: No Respiratory Effort: Unlabored Breath Sounds, Left: Clear and Equal Breath Sounds, Right: Clear and Equal Nausea/Vomiting: Denies RUQ Epigastric Pain: Denies Facial Edema: None Labor Evaluation Frequency: 3-4 Monitor Mode: External Duration (sec)2399: 60-90 Quality: Mild Pattern: Normal: <= 5 Contractions in 10 Minutes Resting Tone [place]: Relaxed Contraction Comments: pt. denies feeling UC's. Heart Rate FHR Baseline Rate: 140 Monitor Mode: External US Variability: Moderate 6-25 bpm Accelerations: 15X15 Decelerations: None Category: Category I Pain Assessment Pain Scale: 0 Pain Presence: None/Denies Pain Type: N/A Pain Goal: 1 Pain Relief Measures: Comfort Measures Datetime: 10/03/2016 21:05 Labor Evaluation Frequency: 2-5 Monitor Mode: External Duration (sec)2399: 60-90 Quality: Mild Pattern: Normal: <= 5 Contractions in 10 Minutes Resting Tone [place]: Relaxed Heart Rate FHR Baseline Rate: 150 Monitor Mode: External US FHR Baseline Changes: No Baseline Change Variability: Moderate 6-25 bpm Accelerations: 15X15 Decelerations: None Category: Category I Datetime: 10/03/2016 19:50 Stage of : OB Triage Datetime: 10/03/2016 16:56 Fall Score: 0 Fall Risk Score Definition: No Risk: No action required Datetime: 10/03/2016 16:51 EGA: 34.6
== END 2016-10-11 17:17 | disposition home or self-care (01) ==
LOC: OBT 13:10 → L-D 13:10 → OBT 17:17
PROVIDERS: ATTEND Obstetrics & Gynecology
DX: O13.3 Gestational [pregnancy-induced] hypertension without significant proteinuria, third trimester (principal); O09.523 Supervision of elderly multigravida, third trimester; Z3A.36 36 weeks gestation of pregnancy
CPT/HCPCS: 76818; 80053; 81001; 84560; 85025; 85362; 85384; 85610; 85730; Z7500; G0463

== ENCOUNTER 2016-10-13 10:24 | Outpatient (CLI) | payer OTHER ==
[~2016-10-13 10:24] MED LIST changes: +NITR-58 PO; +PRO20 PO
[2016-10-13 11:10] VITALS: BP 109/77; RESP 16
[2016-10-13 11:35] LABS: COLLECTION PERIOD 24 hrs
--- NOTE | 2016-10-13 17:46 | QN ---
Documentation Comment Laborist Dr Ricks's pt 41 y.o. with an IUP at 36w 2d here to drop off her 24 hour urine collection with a h/o elevated BP's. Pt is on 20mg Procardia q 6 hours for contractions.Pt denies any visual changes, epigastric pain or edema. + FM. No VB or leaking. Pt does report a new onset of itching all over that she attributes to the Procardia. Her labs were all normal 2 days ago. Pt is scheduled to return 10.15 for recheck of her TL, as it is elevated, and for repeat labs. PMHx: polyhydramnios. Baby with b/l dilated renal pelvis. PSHx: C/S x 1 for arrest of dilitation after induction for postdates and elevated BP's. All: PCN. T=97.7, BP 109/77, 110/77. NST:baseline 120 bpm with accels to 160 bpm. No decels. UC's q 6-11 minutes. Total protein in 24 hour urine colllection >600. TV 4250 mls. A: IUP at 36w 2d. PIH, mild. R/O cholestasis. Polyhydramnios. Previous C/S. P: Total bile acid collection now. D/C home. Return 10/15 for a repeat TL check, BPP, PIH labs, BP check. ERIN HERNANDEZ MD October 13, 2016 17:46
== END 2016-10-13 17:50 | disposition home or self-care (01) ==
LOC: L-D 10:24 → OBT 10:24
PROVIDERS: ATTEND Obstetrics & Gynecology
DX: O13.3 Gestational [pregnancy-induced] hypertension without significant proteinuria, third trimester (principal); O40.3XX0 Polyhydramnios, third trimester, not applicable or unspecified; Z3A.36 36 weeks gestation of pregnancy
CPT/HCPCS: 36415; 83789; 84155; 84156; Z7500; G0463

== ENCOUNTER 2016-10-15 13:35 | Outpatient (CLI) | payer OTHER ==
[~2016-10-15] VITALS: Ht 152.4 cm; Wt 68.8 kg
[~2016-10-15 13:35] MED LIST changes: -NITR-58 PO
--- NOTE | 2016-10-15 13:38 | TRIAGE ---
OB Triage Datetime Report Generated by CPN: 10/15/2016 13:38 Datetime: 10/13/2016 17:47 Time of Arrival: 10/13/2016 10:25 EGA: 36.2 Arrived By: Ambulatory Arrived From: Home Chief Complaint: PT BROUGHT IN HER 24 HOURS URINE FOR PROTEIN AND CR CL Movement: Present Contractions: Irregular Rupture of Membranes: Denies Vaginal Bleeding: None Vaginal Discharge: Denies Abdominal Trauma: Not Applicable Patient Complaints: None Time Provider Notified: 10/13/2016 11:25 Provider Notified: REICHE Initial Plan: NST/ MONITOR UC'S Datetime: 10/13/2016 17:40 Stage of : OB Triage Datetime: 10/13/2016 16:00 Stage of : OB Triage Maternal Assessment Level of Consciousness: Fully Conscious Headache: Denies Nausea/Vomiting: Denies RUQ Epigastric Pain: Denies Labor Evaluation Frequency: 3-5 Monitor Mode: External Duration (sec)2399: 90-120 Quality: Mild Resting Tone [place]: Relaxed Heart Rate FHR Baseline Rate: 125 Monitor Mode: External US FHR Baseline Changes: No Baseline Change Variability: Moderate 6-25 bpm Accelerations: 15X15 Decelerations: None Category: Category I Pain Assessment Pain Scale: 1 Pain Presence: None/Denies Pain Type: N/A Vaginal Exam Membrane Status: Intact Datetime: 10/13/2016 15:00 Maternal Assessment Level of Consciousness: Fully Conscious Headache: Denies Nausea/Vomiting: Denies RUQ Epigastric Pain: Denies Labor Evaluation Frequency: X8 Monitor Mode: External Duration (sec)2399: 90-120 Quality: Mild Resting Tone [place]: Relaxed Heart Rate FHR Baseline Rate: 125 Monitor Mode: External US FHR Baseline Changes: No Baseline Change Variability: Moderate 6-25 bpm Accelerations: 15X15 Decelerations: None Category: Category I Pain Presence: None/Denies Pain Type: N/A Vaginal Exam Membrane Status: Intact Datetime: 10/13/2016 14:00 Maternal Assessment Level of Consciousness: Fully Conscious Headache: Denies Nausea/Vomiting: Denies RUQ Epigastric Pain: Denies Labor Evaluation Frequency: X6 Monitor Mode: External Duration (sec)2399: 90-120 Quality: Mild Resting Tone [place]: Relaxed Heart Rate FHR Baseline Rate: 130 Monitor Mode: External US FHR Baseline Changes: No Baseline Change Variability: Moderate 6-25 bpm Accelerations: 15X15 Decelerations: None Category: Category I Pain Presence: None/Denies Pain Type: N/A Vaginal Exam Membrane Status: Intact Datetime: 10/13/2016 13:00 Stage of : OB Triage Maternal Assessment Level of Consciousness: Fully Conscious Headache: Denies Nausea/Vomiting: Denies RUQ Epigastric Pain: Denies Labor Evaluation Frequency: X6 Monitor Mode: External Duration (sec)2399: 90-120 Quality: Mild Resting Tone [place]: Relaxed Heart Rate FHR Baseline Rate: 130 Monitor Mode: External US FHR Baseline Changes: No Baseline Change Variability: Moderate 6-25 bpm Accelerations: 15X15 Decelerations: None Category: Category I Pain Presence: None/Denies Pain Type: N/A Vaginal Exam Membrane Status: Intact Datetime: 10/13/2016 12:00 Stage of : OB Triage Datetime: 10/13/2016 10:58 Maternal Assessment Level of Consciousness: Fully Conscious DTR's/Clonus: DTRs 1+ Headache: Denies Blurred Vision: No Respiratory Effort: Unlabored Nausea/Vomiting: Denies RUQ Epigastric Pain: Denies Facial Edema: None Monitor Mode: External Heart Rate FHR Baseline Rate: 125 Monitor Mode: External US FHR Baseline Changes: No Baseline Change Variability: Moderate 6-25 bpm Accelerations: 15X15 Decelerations: None Category: Category I Pain Assessment Pain Scale: 0 Pain Presence: None/Denies Pain Type: N/A Vaginal Exam Membrane Status: Intact Datetime: 10/11/2016 13:28 Fall Risk Assessment Fall Score: 0 Fall Risk Score Definition: No Risk: No action required Datetime: 10/11/2016 13:26 EGA: 36.0 Datetime: 10/04/2016 19:26 Fall Risk Assessment Fall Score: 20 Fall Risk Score Definition: No Risk: No action required Datetime: 10/04/2016 07:53 Fall Risk Assessment Fall Score: 20 Fall Risk Score Definition: No Risk: No action required Datetime: 10/03/2016 22:30 Fall Risk Assessment Fall Score: 20 Fall Risk Score Definition: No Risk: No action required Datetime: 10/03/2016 16:56 Fall Risk Assessment Fall Score: 0 Fall Risk Score Definition: No Risk: No action required Datetime: 10/03/2016 16:51 EGA: 34.6
[2016-10-15 13:57] VITALS: BP 129/67; PULSE 88; RESP 18
--- NOTE | 2016-10-15 14:40 | RADRPT ---
PROCEDURE: OB ultrasound for biophysical profile CLINICAL INDICATION: Decrease movement TECHNIQUE: Multiple sonographic images of the pelvis were obtained. Transabdominal views of the g ravid uterus are available for review. The images were reviewed on a PACS workstation. COMPARISON: None FINDINGS: breathing movement = 2/2 tone = 2/2 motion = 2/2 TL = 2/2 TL = 18.4 cm Single live intrauterine with cardiac activity of 136 bpm. position is cephal ic. The placenta is posterior. There is bilateral renal pyelectasis with the right renal pelvis [place] 1.7 cm in diameter and the left 1.2 cm in diameter. IMPRESSION: 1. Single live intrauterine gestation. 2. Biophysical profile = 12/25. 3. TL = 18.4 cm. 4. Bilateral renal pyelectasis with the right renal pelvis measuring approximately 1.7 cm in diamet er and the left renal pelvis measuring approximately 1.2 cm. RPTAT: .Demi Noland MD, MD Date Time Electronically viewed and signed by .Demi Noland MD, on 10/15/2016 14:40 .G/
[2016-10-15 16:10] LABS: ADD SCAN DIFF NO
[2016-10-15 16:12] LABS: BASOPHILS % 0.4 % (0.0-2.0); EOSINOPHILS % 0.8 % (0.0-7.0); HEMATOCRIT 33.8 % (37.0-47.0); LYMPHOCYTES # 1.5 10^3/ul (0.8-2.9); LYMPHOCYTES % 29.8 % (15.0-51.0); MEAN CORPUSCULAR HEMOGLOBIN 33.4 pg (29.0-33.0); MEAN CORPUSCULAR HGB CONC 35.5 g/dl (32.0-37.0); MEAN CORPUSCULAR VOLUME 94.2 fl (82.0-101.0); MEAN PLATELET VOLUME 10.5 fl (7.4-10.4); MONOCYTE # 0.4 10^3/ul (0.3-0.9); MONOCYTES % 7.1 % (0.0-11.0); NEUTROPHIL # 3.1 10^3/ul (1.6-7.5); NEUTROPHILS % 61.5 % (39.0-77.0); PLATELET COUNT 193 10^3/UL (140-415); RED BLOOD COUNT 3.59 10^6/ul (4.20-5.40); RED CELL DISTRIBUTION WIDTH 13.3 % (11.5-14.5); WHITE BLOOD COUNT 5.1 10^3/ul (4.8-10.8)
[2016-10-15 16:23] LABS: ADD UMIC YES; URINE BILIRUBIN (Dip) NEGATIVE (NEGATIVE); URINE BLOOD (Dip) NEGATIVE (NEGATIVE); URINE COLOR YELLOW (YELLOW); URINE GLUCOSE (Dip) NEGATIVE (NEGATIVE); URINE KETONES (Dip) NEGATIVE (NEGATIVE); URINE LEUKOCYTE ESTERASE (Dip) TRACE (NEGATIVE); URINE NITRITE (Dip) NEGATIVE (NEGATIVE); URINE TOTAL PROTEIN (Dip) TRACE (NEGATIVE); URINE UROBILINOGEN (Dip) 0.2 E.U./dL (0.1-1.0)
[2016-10-15 16:29] LABS: INR 0.84; PROTIME 11.5 Sec (12.2-14.2); PT RATIO 0.9
[2016-10-15 16:30] LABS: PARTIAL THROMBOPLASTIN TIME 27.9 Sec (25.0-35.0)
[2016-10-15 16:31] LABS: URINE RBCS 0-2 /HPF (0)
[2016-10-15 16:35] LABS: ALBUMIN 2.9 g/dl (3.3-4.9); POTASSIUM 4.1 mmol/L (3.5-5.1)
[2016-10-15 16:37] LABS: CREATININE 0.45 mg/dl (0.44-1.00)
[2016-10-15 16:38] LABS: ALBUMIN/GLOBULIN RATIO 0.96; BILIRUBIN,INDIRECT 0.2 mg/dl (0-1.1); BILIRUBIN,TOTAL 0.2 mg/dl (0.2-1.3); TOTAL PROTEIN 5.9 g/dl (6.1-8.1)
[2016-10-15 16:39] LABS: CALCIUM 8.4 mg/dl (8.4-10.2)
[2016-10-15] MEDS ORDERED: TERBUTALINE 1 MG/ML INJ SC ONE (17:20)
[2016-10-15] MEDS ORDERED: LACTATED RINGER'S 1,000 ML IV SCH (17:30)
--- NOTE | 2016-10-15 17:30 | PN ---
Date/Time of Note Date/Time of Note DATE: 10/15/16 TIME: 17:26 OB Subjective Subjective Subjective Patient is a 41-year-old 2 para 1 at 36+4 weeks of gestation with history of 1 Patient was seen 2 weeks ago and evaluated for labor, she received magnesium sulfate and betamethasone for lung maturity 2 doses Subsequently the patient has been placed on Procardia 20 mg every 6 hours She presents today to triage for NST, BPP and PIH labs Patient reports occasional contractions, no leaking fluid, no vaginal bleeding, positive movement OB Objective Objective Objective Blood pressure 129/67 PROCEDURE: OB ultrasound for biophysical profile CLINICAL INDICATION: Decrease movement TECHNIQUE: Multiple sonographic images of the pelvis were obtained. Transabdominal views of the gravid uterus are available for review. The images were reviewed on a PACS workstation. COMPARISON: None FINDINGS: breathing movement = 2/2 tone = 2/2 motion = 2/2 TL = 2/2 TL = 18.4 cm Single live intrauterine with cardiac activity of 136 bpm. position is cephalic. The placenta is posterior. There is bilateral renal pyelectasis with the right renal pelvis measuring 1.7 cm in diameter and the left 1.2 cm in diameter. IMPRESSION: 1. Single live intrauterine gestation. 2. Biophysical profile = 8/8. 3. TL = 18.4 cm. 4. Bilateral renal pyelectasis with the right renal pelvis measuring approximately 1.7 cm in diameter and the left renal pelvis measuring approximately 1.2 cm. RPTAT: HH .Demi Noland MD, MD Date Time Electronically viewed and signed by .Demi Noland MD, on 10/15/2016 14 :40 .G/ CC: ERIN HERNANDEZ MD HEENT: WNL Heart: Rhythm Normal Lungs: Clear, Equal Abdomen: WNL Extremities: Normal Reflexes: Normal Cervical Dilatation: 1cm Heart Rate: 140's Accelerations: Accelerations Present Decelerations: No Decelerations Varibility: Marked Contractions on Admission: 6-10 Minutes Apart Intensity: Mild OB Assessment/Plan Other Assessment: 36+4 weeks of gestation with contractions NST is reactive BPP and TL within normal limits PIH labs done Other plan: IV fluid Terbutaline 1 dose Continue with the current dose of Procardia 20 mg every 6 hours Patient should follow-up with [facility] on and plan for repeat at 37 weeks of gestation She was instructed to return if contractions are every 3-5 minutes, positive leaking fluid, positive vaginal bleeding or no movement HELGA SANTA MD October 15, 2016 17:30
[2016-10-15] MEDS ORDERED: NIFEdipine 10 MG CAP PO ONE (18:00)
--- NOTE | 2016-10-15 18:59 | TRIAGE ---
OB Triage Datetime Report Generated by CPN: 10/15/2016 18:58 Datetime: 10/15/2016 18:39 Frequency: X3 Monitor Mode: External Duration (sec)2399: 50-100 Quality: Mild Pattern: Normal: <= 5 Contractions in 10 Minutes Resting Tone [place]: Relaxed Contraction Comments: PT REPORTS FEELING PRESSURE, BUT DENIES PAIN WITH CTX. FHR Baseline Rate: 125 FHR Baseline Changes: No Baseline Change Variability: Moderate 6-25 bpm Accelerations: 15X15 Decelerations: None Category: Category I Datetime: 10/15/2016 17:59 Frequency: 6-30 Monitor Mode: External Duration (sec)2399: 60-90 Quality: Mild Pattern: Normal: <= 5 Contractions in 10 Minutes Resting Tone [place]: Relaxed Contraction Comments: NO CONTRACTIONS NOTED AFTER TERBUTALINE ADMINISTRATION FHR Baseline Rate: 125 Monitor Mode: External US FHR Baseline Changes: No Baseline Change Variability: Moderate 6-25 bpm Accelerations: 15X15 Decelerations: None Category: Category I Datetime: 10/15/2016 17:06 Dilatation (cms): 1.0 Effacement (%): 50 Station: -2 Exam By: SARAHUNIANOOPI Vaginal Bleeding: None Cervix, Consistency: Moderate Cervix, Position: Posterior Datetime: 10/15/2016 16:58 Frequency: 6-11 Monitor Mode: External Duration (sec)2399: 60-150 Quality: Mild Pattern: Normal: <= 5 Contractions in 10 Minutes Resting Tone [place]: Relaxed Monitor Mode: External US FHR Baseline Changes: No Baseline Change Variability: Moderate 6-25 bpm Accelerations: 15X15 Decelerations: Variable Comments: Vx1 Datetime: 10/15/2016 16:00 Frequency: 5-10 Monitor Mode: External Duration (sec)2399: 50-90 Quality: Mild Pattern: Normal: <= 5 Contractions in 10 Minutes Resting Tone [place]: Relaxed FHR Baseline Rate: 125 FHR Baseline Changes: No Baseline Change Variability: Moderate 6-25 bpm Accelerations: 15X15 Decelerations: None Category: Category I Datetime: 10/15/2016 15:02 Frequency: 5-8 Monitor Mode: External Duration (sec)2399: 60-90 Quality: Mild Pattern: Normal: <= 5 Contractions in 10 Minutes Resting Tone [place]: Relaxed Contraction Comments: PT REPORTS FEELING PRESSURE WITH THE CTX, BUT DENIES PAIN. FHR Baseline Rate: 135 FHR Baseline Changes: No Baseline Change Variability: Moderate 6-25 bpm Accelerations: 15X15 Decelerations: None Category: Category I Datetime: 10/15/2016 14:34 Frequency: 2-20 Monitor Mode: External Duration (sec)2399: 50-100 Quality: Mild Resting Tone [place]: Relaxed Contraction Comments: PT REPORTS NOT FEELING CTX. FHR Baseline Rate: 135 FHR Baseline Changes: No Baseline Change Variability: Moderate 6-25 bpm Accelerations: 15X15 Decelerations: None Category: Category I Datetime: 10/15/2016 14:00 Stage of : OB Triage Level of Consciousness: Fully Conscious Headache: Denies Blurred Vision: No Respiratory Effort: Unlabored; Regular Rhythm; Equal Expansion Breath Sounds, Left: Clear and Equal Breath Sounds, Right: Clear and Equal Nausea/Vomiting: Denies RUQ Epigastric Pain: Denies Lower Extremities Edema: None Degree: None Upper Extremities Edema: None Degree: None Facial Edema: None Temperature Route: Axillary History of Falling: (0) No Secondary Diagnosis: (0) No Ambulatory Aid: (0) Bedrest/Nurse Assist IV Therapy: (0) No Gait: (0) Normal/Bedrest/Immobile Mental Status: (0) Oriented to Own Ability Fall Score: 0 Fall Risk Score Definition: No Risk: No action required Datetime: 10/15/2016 13:59 Time of Arrival: 10/15/2016 13:31 EGA: 36.4 Arrived By: Ambulatory Arrived From: Home Chief Complaint: FOLLOW UP VISIT FOR NST/BPP FOR PIH, POLYHYDRAMNIOS Movement: Present Contractions: Denies/Absent Rupture of Membranes: Denies Vaginal Bleeding: None Vaginal Discharge: Denies Recent Sexual Intercouse: Denies Abdominal Trauma: Not Applicable Patient Complaints: None Time Provider Notified: 10/15/2016 15:01 Provider Notified: DR. HERNANDEZ Initial Plan: EFM x2, BPP
== END 2016-10-15 18:50 | disposition home or self-care (01) ==
LOC: OBT 13:35 → L-D 13:36 → OBT 18:50
PROVIDERS: ATTEND Obstetrics & Gynecology
DX: O36.8130 Decreased fetal movements, third trimester, not applicable or unspecified (principal); O09.523 Supervision of elderly multigravida, third trimester; Z3A.36 36 weeks gestation of pregnancy
CPT/HCPCS: 36415; 76818; 80053; 81001; 84560; 85025; 85384; 85610; 85730; 96372; J3105; Z7500; Z7610; G0463

== ENCOUNTER 2016-10-20 09:10 | Outpatient (CLI) | payer OTHER ==
[~2016-10-20] VITALS: Ht 152.4 cm; Wt 68.0 kg
[2016-10-20 09:43] VITALS: Ht 152.4 cm; Wt 68.0 kg
[2016-10-20 09:44] VITALS: BP 126/85; PULSE 69; RESP 20
[2016-10-20] MEDS ORDERED: ACETAMINOPHEN 325 MG TAB PO ONE (11:00)
[2016-10-20 11:19] LABS: ADD SCAN DIFF NO
--- NOTE | 2016-10-20 11:41 | RADRPT ---
PROCEDURE: US OB biophysical profile. CLINICAL INDICATION: decreased movements, hypertension TECHNIQUE: Multiple sonographic images of the pelvis were obtained. The images were reviewed on a PACS workstation. COMPARISON: No prior studies are available for comparison. FINDINGS: There is a single viable intrauterine gestation. Cardiac activity is present with 125 beats per min telida. There is a vertex presentation. The placenta is posterior. There is no evidence of placental abruption. There is a increased amount of amniotic fluid with an TL = 22.6 cm. Biophysical profile: movement 2/2 tone 2/2. breathing 2/2 TL 2/2 Total 12/25 RPTAT: AA . IMPRESSION: Normal biophysical profile. Polyhydramnios. . .Torsten Murdock MD, Date Time Electronically viewed and signed by .Torsten Murdock MD, on 10/20/2016 11:41 .S/
[2016-10-20 11:42] LABS: ALBUMIN 3.8 g/dl (3.3-4.9); ALBUMIN/GLOBULIN RATIO 1.46; BILIRUBIN,INDIRECT 0.4 mg/dl (0-1.1); BILIRUBIN,TOTAL 0.4 mg/dl (0.2-1.3); CALCIUM 8.6 mg/dl (8.4-10.2); CREATININE 0.57 mg/dl (0.44-1.00); POTASSIUM 4.7 mmol/L (3.5-5.1); TOTAL PROTEIN 6.4 g/dl (6.1-8.1); URIC ACID 5.6 mg/dl (3.1-7.9)
[2016-10-20 11:57] LABS: BASOPHILS % 0.5 % (0.0-2.0); EOSINOPHILS % 0.5 % (0.0-7.0); HEMATOCRIT 36.2 % (37.0-47.0); HEMOGLOBIN 12.5 g/dl (12.0-16.0); LYMPHOCYTES # 1.6 10^3/ul (0.8-2.9); LYMPHOCYTES % 37.1 % (15.0-51.0); MEAN CORPUSCULAR HEMOGLOBIN 32.7 pg (29.0-33.0); MEAN CORPUSCULAR HGB CONC 34.5 g/dl (32.0-37.0); MEAN CORPUSCULAR VOLUME 94.8 fl (82.0-101.0); MEAN PLATELET VOLUME 11.2 fl (7.4-10.4); MONOCYTE # 0.3 10^3/ul (0.3-0.9); MONOCYTES % 6.4 % (0.0-11.0); NEUTROPHIL # 2.3 10^3/ul (1.6-7.5); NEUTROPHILS % 55.3 % (39.0-77.0); PLATELET COUNT 168 10^3/UL (140-415); RED BLOOD COUNT 3.82 10^6/ul (4.20-5.40); RED CELL DISTRIBUTION WIDTH 13.2 % (11.5-14.5); WHITE BLOOD COUNT 4.2 10^3/ul (4.8-10.8)
--- NOTE | 2016-10-20 12:17 | QN ---
Documentation Comment Laborist Dr Ricks's pt 41 y.o with an IUP at 37w 2d with mild PIH, on Procardia and being followed by perinatology, here as she woke up with a HADLEY. No epigastric pain, visual changes, or edema.Pt has a 24 hour urine collection with a total protein of >600. At a prior visit her LFT's were very slightly elevated. Her last uric acid was 5. +FM. No VB or leaking. PMHx: polyhydramnios. Ze with b/l dilated renal pelves. PSHx: C/S x 1. All PCN. BP's: 126-134/75-87 NST: baseline 110-120 bpm with accels to 150 bpm. No Decels. No UC's. BPP 8/8. TL 22.6 cm. VTX. Plts 168K ALT/AST 65/31 Uric acid 5.6 A: Tylenol 650 mg resolved her HADLEY. D/C home. Keep appt with Dr Ricks on Sunday 10/22 and perinatology 10/23. ERIN HERNANDEZ MD Oct 20, 2016 12:17
== END 2016-10-20 12:20 | disposition home or self-care (01) ==
LOC: OBT 09:10 → L-D 09:10 → OBT 12:20
PROVIDERS: ATTEND Obstetrics & Gynecology
DX: O13.3 Gestational [pregnancy-induced] hypertension without significant proteinuria, third trimester (principal); O09.523 Supervision of elderly multigravida, third trimester; Z3A.37 37 weeks gestation of pregnancy
CPT/HCPCS: 76818; 80053; 84560; 85025; Z7500; Z7610; G0463

== ENCOUNTER 2016-10-22 11:24 | Inpatient (IN) | payer OTHER ==
[~2016-10-22] VITALS: Ht 152.4 cm; Wt 68.8 kg
[2016-10-22 11:45] VITALS: BMI 28.9
[2016-10-22] MEDS ORDERED: METHYLERGONOVINE 0.2 MG INJ IM PRN (12:00)
[2016-10-22] MEDS ORDERED: CARBOPROST 250 MCG INJ IM PRN (12:00)
[2016-10-22] MEDS ORDERED: MISOPROSTOL 200 MCG TAB PR PRN (12:00)
[2016-10-22] MEDS ORDERED: OXYTOCIN 30 UNITS/LR 500 ML IV SCH (12:00)
[2016-10-22] MEDS ORDERED: OXYTOCIN 30 UNITS/LR 500 ML IV PRN (12:00)
[2016-10-22] MEDS ORDERED: GENTAMICIN 80 MG in SOD CHLORIDE 0.9% 100 ML IVPB SCH (12:00)
[2016-10-22] MEDS: LACTATED RINGER'S 1,000 ML IV SCH ×2 (12:09→19:38)
[2016-10-22 12:48] LABS: ADD SCAN DIFF NO
[2016-10-22 12:51] LABS: BASOPHILS % 0.4 % (0.0-2.0); EOSINOPHILS % 0.8 % (0.0-7.0); HEMATOCRIT 37.4 % (37.0-47.0); HEMOGLOBIN 12.9 g/dl (12.0-16.0); LYMPHOCYTES # 1.8 10^3/ul (0.8-2.9); LYMPHOCYTES % 34.7 % (15.0-51.0); MEAN CORPUSCULAR HEMOGLOBIN 32.6 pg (29.0-33.0); MEAN CORPUSCULAR HGB CONC 34.5 g/dl (32.0-37.0); MEAN CORPUSCULAR VOLUME 94.4 fl (82.0-101.0); MEAN PLATELET VOLUME 11.5 fl (7.4-10.4); MONOCYTE # 0.3 10^3/ul (0.3-0.9); MONOCYTES % 5.6 % (0.0-11.0); NEUTROPHIL # 2.9 10^3/ul (1.6-7.5); NEUTROPHILS % 58.1 % (39.0-77.0); PLATELET COUNT 185 10^3/UL (140-415); RED BLOOD COUNT 3.96 10^6/ul (4.20-5.40); RED CELL DISTRIBUTION WIDTH 13.2 % (11.5-14.5)
[2016-10-22 13:12] LABS: INR 0.8; PROTIME 11.1 Sec (12.2-14.2); PT RATIO 0.9
[2016-10-22 13:13] LABS: PARTIAL THROMBOPLASTIN TIME 27.4 Sec (25.0-35.0)
[2016-10-22] MEDS ORDERED: ONDANSETRON 4 MG INJ IV STA (15:57)
[2016-10-22] MEDS ORDERED: CITRIC ACID/SODIUM CITRATE 15 ML CUP PO ONE (16:00)
[2016-10-22] MEDS ORDERED: GENTAMICIN 80 MG/NS (PMX) 50 ML IVPB SCH (16:00)
[2016-10-22] MEDS ORDERED: CITRIC ACID/SODIUM CITRATE 15 ML CUP ONE (16:03)
[2016-10-22] MEDS ORDERED: ONDANSETRON 4 MG INJ ONE (16:03)
[2016-10-22] MEDS ORDERED: PHENYLephrine (100 MCG/ML) 5ML SYG ONE (16:04)
[2016-10-22] MEDS ORDERED: METOCLOPRAMIDE 10 MG INJ ONE (16:04)
[2016-10-22] MEDS ORDERED: FENTAnyl 50 MCG/ML VIAL ONE (16:04)
[2016-10-22] MEDS ORDERED: OXYTOCIN 10 UNIT INJ ONE (16:04)
[2016-10-22] MEDS ORDERED: morphine SULFATE/PF (10 MG/10 ML) INJ ONE (16:04)
[2016-10-22] MEDS ORDERED: morphine 2 MG INJ IV PRN ×2 (17:00)
[2016-10-22] MEDS ORDERED: TRIMETHOBENZAMIDE 100 MG/ML VIAL IM PRN (17:00)
[2016-10-22] MEDS ORDERED: NALOXONE (0.4 MG/ML) INJ IV PRN (17:00)
[2016-10-22] MEDS ORDERED: MEPERIDINE 25 MG INJ IV PRN (17:00)
[2016-10-22] MEDS ORDERED: ZOLPIDEM 5 MG TAB PO PRN (17:00)
[2016-10-22] MEDS ORDERED: MIDAZOLAM 1 MG/ML 2 ML INJ IV PRN (17:00)
[2016-10-22] MEDS ORDERED: hydrALAzine 20 MG INJ IV PRN (17:00)
[2016-10-22] MEDS ORDERED: LABETALOL HCL 20MG INJ IV PRN (17:00)
[2016-10-22] MEDS ORDERED: FENTAnyl 50 MCG/ML VIAL IV PRN ×3 (17:00)
[2016-10-22] MEDS ORDERED: HYDROmorphONE (0.2 MG/ML) 10ML SYG IV PRN ×3 (17:00)
[2016-10-22] MEDS ORDERED: ONDANSETRON 4 MG INJ IV PRN ×2 (17:00)
[2016-10-22] MEDS ORDERED: KETOROLAC 30 MG INJ IV PRN (17:00)
[2016-10-22] MEDS ORDERED: EPHEDrine SULFATE 50 MG/5 ML SYG IV PRN (17:00)
[2016-10-22] MEDS ORDERED: DIPHENHYDRAMINE 50 MG INJ IV PRN ×2 (17:00)
--- NOTE | 2016-10-22 17:30 | HP ---
Date/Time of Note Date/Time of Note DATE: 10/22/16 TIME: 17:21 OB - History Hx of Present Free Text/Dictation admitted for repeat C/S at 37 weeks gestation `because of cholestasis (bile acids in excess of 50) Last Menstrual Period: Feb 02, 2016 Estimated Due Date: Nov 08, 2016 : 2 Para: 1 Obstetrical Complications: Gestational Hypertension, Other (cholestasis and labor ) Past Family/Social History * Past Medical, Surgical, Family and Obstetric Histories reviewed from chart. Blood Type: B+ Rubella: immune RPR/VDRL: Negative GBS Status: Positive HBsAG: Negative OB Admission Exam Vital Signs Vital Signs see nurses Physical Exam HEENT: WNL Heart: Rhythm Normal Lungs: Clear, Equal Abdomen: WNL Extremities: Normal Reflexes: Normal Cervical Dilatation: None Effacement: 0% Station: -3 Membranes: Intact Heart Rate: 120's Accelerations: Accelerations Present Decelerations: No Decelerations Varibility: Marked Contractions on Admission: >10 Minutes Apart Last 72 hours Lab Results CBC & BMP 10/22/16 12:10 OB Assessment/Plan Reason for admission: section Other Assessment: 37 + weeks gestation previous Xc/S x 1 desires sterilization cholestasis Other plan: repeat C/S + BTL RITU AGRAWAL MD Oct 22, 2016 17:30
--- NOTE | 2016-10-22 17:34 | OPR ---
Operative Report Planned Procedure Procedure date Oct 22, 2016 Procedure(s) repeat C/S + BTL Performed by: RITU AGRAWAL MD Assisting provider: SELMA GUZMAN MD Anesthesiologist: Deny Lacey M.D. Pre-procedure diagnosis 37 weeks gestation previous C/S X 1 cholestasis desired sterilization Anesthesia Type: spinal Procedure Description Under satisfactory anaesthesia a Pfannenstiel incision was made two fingerbreadth above and parallel to the symphysis of pubis around the previous scar and previous scar was removed Incision was extended laterally to the border of the Recti muscles on either sides. Incision was carried down with sharp and blunt dissection until fascia was reached. Anterior Recti muscle fascia was incised in mid portion and incision extended laterally to the border of skin incision. Fascia was mobilized from muscle superiorly and Recti muscles were from midline using sharp and blunt dissection. Peritoneum was visualized; Avoiding bowel and bladder it was incised . Incision was extended superiorly and inferiorly. Bladder blade was placed. Posterior peritoneum covering the lower segment of the uterus and lower segment of the uterus were incised.Low transverse uterine incision was made on lower segment of the uterus. Incision extended laterally to the border of Round Lig. on either sides and baby was delivered from OT. position . Amniotic fluid appeared clear. Cord blood was obtained and cord had 3 vessels . Placenta was delivered spontaneously and appeared intact and complete. Intrauterine cavity was rubbed with a laparotomy sponge. Uterine incision was closed in 2 layers using running stitches of No1 Monocryl. Hemostasis appeared secure. Ovaries and Fallopian tubes were within normal limits. Bilateral Tubal Ligation was performed by following procedure: R fallopian tube was raised in mid portion; a Gavi clamp was placed below the fimbriae extending to proximal portion of the fallopian tube. Another clamp was placed parallel to the first and after incising the fallopian tube the stump was sutured using 0 Vicryl stitch. Hemostasis was secure . Same procedure was done on fallopian tube on the opposite side. Hemostasis appeared to be secure on ligated sites of either fallopian tubes. Announcing needle, lap sponge and instrument count to be correct abdomen was closed in layers as follows: Peritoneum and Recti muscles with running stitches of 20 Vicryl. Fascia with running stitch of No 1 PDS. Subcutaneous tissue with running stitches of 20 Chromic and skin was closed using lorna. Patient tolerated the procedure well and was transferred to [facility] in good condition. Post-Procedure Post-procedure diagnosis S/P C/S + BTL Findings: Live Baby Specimen removed: Yes Specimen description segments of R and L fallopian tubes Complications: None Pt Condition post procedure: stable Disposition: PACU Physician Certification I, the undersigned physician, hereby certify that I have discussed the procedure described in this consent form with this patient (or the patient's legal career representative), including: * The risk and benefits of the procedure; * Any adverse reactions that may reasonably be expected to occur; * Any alternative efficacious methods of treatment which may be medically viable ; * The potential problems that may occur during recuperation; * Potential for blood transfusion and associated risks/benefits; and * Any research or economic interest I may have regarding this treatment. I further certify that the patient/legally responsible person was encouraged to ask question and that all questions were answered. RITU AGRAWAL MD Oct 22, 2016 17:34
[2016-10-22] MEDS: CLINDAMYCIN 900 MG/D5W (PMX) 50 ML IVPB SCH ×2 (17:43→18:45)
[2016-10-22 19:49] LABS: ADD SCAN DIFF NO
[2016-10-22 19:53] LABS: BASOPHILS % 0.4 % (0.0-2.0); EOSINOPHILS % 0.5 % (0.0-7.0); HEMATOCRIT 33.5 % (37.0-47.0); HEMOGLOBIN 11.7 g/dl (12.0-16.0); LYMPHOCYTES # 1.7 10^3/ul (0.8-2.9); LYMPHOCYTES % 31.2 % (15.0-51.0); MEAN CORPUSCULAR HEMOGLOBIN 33.1 pg (29.0-33.0); MEAN CORPUSCULAR HGB CONC 34.9 g/dl (32.0-37.0); MEAN CORPUSCULAR VOLUME 94.9 fl (82.0-101.0); MEAN PLATELET VOLUME 11.1 fl (7.4-10.4); MONOCYTE # 0.2 10^3/ul (0.3-0.9); MONOCYTES % 3.6 % (0.0-11.0); NEUTROPHIL # 3.6 10^3/ul (1.6-7.5); NEUTROPHILS % 63.9 % (39.0-77.0); PLATELET COUNT 144 10^3/UL (140-415); RED BLOOD COUNT 3.53 10^6/ul (4.20-5.40); RED CELL DISTRIBUTION WIDTH 13.2 % (11.5-14.5); WHITE BLOOD COUNT 5.6 10^3/ul (4.8-10.8)
[2016-10-22 20:06] LABS: INR 0.89; PT RATIO 0.9
[2016-10-22 20:07] LABS: PARTIAL THROMBOPLASTIN TIME 26.4 Sec (25.0-35.0)
[2016-10-22 20:12] LABS: POTASSIUM 4.9 mmol/L (3.5-5.1)
[2016-10-22 20:13] LABS: ALBUMIN 3.2 g/dl (3.3-4.9); ALBUMIN/GLOBULIN RATIO 1.45; BILIRUBIN,INDIRECT 0.3 mg/dl (0-1.1); BILIRUBIN,TOTAL 0.3 mg/dl (0.2-1.3); CALCIUM 8.1 mg/dl (8.4-10.2); CREATININE 0.56 mg/dl (0.44-1.00); TOTAL PROTEIN 5.4 g/dl (6.1-8.1)
[2016-10-22 20:42] LABS: ADD UMIC YES; URINE BILIRUBIN (Dip) NEGATIVE (NEGATIVE); URINE BLOOD (Dip) 3+ (NEGATIVE); URINE COLOR LT. YELLOW (YELLOW); URINE GLUCOSE (Dip) NEGATIVE (NEGATIVE); URINE KETONES (Dip) NEGATIVE (NEGATIVE); URINE LEUKOCYTE ESTERASE (Dip) NEGATIVE (NEGATIVE); URINE NITRITE (Dip) NEGATIVE (NEGATIVE); URINE TOTAL PROTEIN (Dip) NEGATIVE (NEGATIVE); URINE UROBILINOGEN (Dip) 0.2 E.U./dL (0.1-1.0)
[2016-10-22 20:53] LABS: URINE RBCS 25-50 /HPF (0)
[2016-10-22 20:54] LABS: BACTERIA,URINE RARE; SQUAMOUS EPITHELIAL CELL,UR RARE
[2016-10-22] MEDS ORDERED: MAGNESIUM SULFATE 3 GM in SOD CHLORIDE 0.9% 100 ML IVPB ONE (22:30)
[2016-10-22] MEDS ORDERED: MAGNESIUM SULFATE 20 GM/500 ML 500 ML IV SCH (23:00)
[2016-10-23] VITALS (14 sets, daily range): BP systolic 111–141; BP diastolic 67–81; PULSE 70–90; RESP 18–20; Ht 152.4 cm; Wt 68.8 kg
[2016-10-23] MEDS: LACTATED RINGER'S 1,000 ML IV SCH ×5 (00:01→16:00)
[2016-10-23] MEDS ORDERED: OXYTOCIN 30 UNITS/LR 500 ML IV PRN (00:30)
[2016-10-23] MEDS ORDERED: NA PHOSPHATE/BIPHOS 133 ML ENEMA PR PRN ×2 (00:30)
[2016-10-23] MEDS ORDERED: CARBOPROST 250 MCG INJ IM PRN (00:30)
[2016-10-23] MEDS ORDERED: MISOPROSTOL 200 MCG TAB PR PRN (00:30)
[2016-10-23] MEDS ORDERED: ACETAMINOPHEN/CODEINE #3 TAB PO PRN (00:30)
[2016-10-23] MEDS ORDERED: LANOLIN 7 GM TUBE TOP PRN (00:30)
[2016-10-23] MEDS ORDERED: METHYLERGONOVINE 0.2 MG INJ IM PRN (00:30)
[2016-10-23] MEDS ORDERED: OXYCODONE/ACETAMINOPHEN (5/325) TAB PO PRN (00:30)
[2016-10-23] MEDS: GENTAMICIN 80 MG/NS (PMX) 50 ML IVPB SCH ×3 (00:30→15:57)
[2016-10-23] MEDS: CLINDAMYCIN 900 MG/D5W (PMX) 50 ML IV SCH ×3 (01:19→15:57)
[2016-10-23] MEDS: METOPROLOL 25 MG TAB PO SCH ×3 (03:40→21:00)
[2016-10-23] MEDS ORDERED: IBUPROFEN 800 MG TAB PO ONE ×2 (04:00→04:30)
[2016-10-23] MEDS ORDERED: IBUPROFEN 800 MG TAB PO SCH (05:00)
--- NOTE | 2016-10-23 06:09 | CONS ---
DATE OF ADMISSION: 10/22/2016 DATE OF CONSULTATION: 10/22/2016 REASON FOR CONSULTATION: PVCs. HISTORY OF PRESENT ILLNESS: The patient is a 41-year-old female with history of -induced h ypertension who is status post section. Postop, it was noted that she has been having PVCs and bigeminy, and as such, a consultation was placed. The patient denied similar issues in the pas t. Currently, she does not have any complaint. She denied any palpitation, lightheadedness, chest pain, shortness of breath. She also denied a history of syncope. This is her second , and she stated she has not had any complications with both C-sections. While she was in the recovery r oom, her systolic blood pressure was in the 170s. Currently, she is on the telemetry unit, and her blood pressure has been within acceptable range. On the monitor, it still shows PVCs and also bigem iny. Also, she has had trigeminy as well. As far as her labs are concerned, CBC and CMP are within acceptable range except alkaline phosphatase of 238. Her calcium is 8.1, but her albumin is 3.2. The patient was started on a magnesium drip. REVIEW OF SYSTEMS: A 12-point review was perform and negative except as mentioned in the HPI. PAST MEDICAL HISTORY: As per HPI. PAST SURGICAL HISTORY: x2. SOCIAL HISTORY: She is an ex-smoker. Denied alcohol or illicit drug use. ALLERGIES: PENICILLIN. HOME MEDICATIONS: 1. Nifedipine. 2. Iron. 3. Calcium carbonate. 4. vitamins. PHYSICAL EXAMINATION: VITAL SIGNS: Blood pressure 113/68, heart rate 82, respiratory rate 20, temperature 98.5, oxygen sa turation 94% on room air. GENERAL: The patient lying in bed in no acute distress. She looks comfortable. She is alert and o riented x4 and answering questions appropriately and able to speak in full sentences. HEENT: No obvious head deformity. Pupils are reactive to light. Extraocular muscles intact. NECK: No neck fullness, palpable mass, or enlarged palpable thyroid. CARDIOVASCULAR: Extra beats were heard. LUNGS: Clear to auscultation. ABDOMEN: Soft. No erythema or sign of infection around the surgical site. EXTREMITIES: No edema. NEUROLOGIC: No focal deficits. LABORATORY DATA: Pertinent positives results as mentioned in the HPI. IMPRESSION: 1. Premature ventricular contractions with bigeminy and trigeminy. 2. History of -induced hypertension. 3. Status post section. PLAN: Continue to monitor here in telemetry unit. Continue magnesium drip. We will check magnesiu m and phosphorus, and we will repeat calcium in the morning. We will place a cardiology consult. H er blood pressure is currently within acceptable range, and we will continue her current management. Postop care of her per OB. Further workup and management per clinical course. Dictated By: KRISTEN JANG/NTS Conf#: [id number] DID#: [id number]
[2016-10-23 07:32] LABS: ADD SCAN DIFF NO
[2016-10-23 07:41] LABS: BASOPHILS % 0.2 % (0.0-2.0); EOSINOPHILS % 0.2 % (0.0-7.0); HEMATOCRIT 31.2 % (37.0-47.0); HEMOGLOBIN 10.7 g/dl (12.0-16.0); LYMPHOCYTES # 1.1 10^3/ul (0.8-2.9); LYMPHOCYTES % 11.1 % (15.0-51.0); MEAN CORPUSCULAR HEMOGLOBIN 32.4 pg (29.0-33.0); MEAN CORPUSCULAR HGB CONC 34.3 g/dl (32.0-37.0); MEAN CORPUSCULAR VOLUME 94.5 fl (82.0-101.0); MEAN PLATELET VOLUME 11.6 fl (7.4-10.4); MONOCYTE # 0.4 10^3/ul (0.3-0.9); MONOCYTES % 4.3 % (0.0-11.0); NEUTROPHIL # 8.5 10^3/ul (1.6-7.5); NEUTROPHILS % 83.7 % (39.0-77.0); PLATELET COUNT 156 10^3/UL (140-415); RED CELL DISTRIBUTION WIDTH 13.2 % (11.5-14.5); WHITE BLOOD COUNT 10.2 10^3/ul (4.8-10.8)
[2016-10-23 08:19] LABS: ALBUMIN 2.8 g/dl (3.3-4.9); ALBUMIN/GLOBULIN RATIO 1.27; BILIRUBIN,INDIRECT 0.4 mg/dl (0-1.1); BILIRUBIN,TOTAL 0.4 mg/dl (0.2-1.3); CALCIUM 7.6 mg/dl (8.4-10.2); CHOL/HDL RATIO 6.4 RATIO; CREATININE 0.57 mg/dl (0.44-1.00); PHOSPHORUS 3.5 mg/dl (2.5-4.9); POTASSIUM 4.3 mmol/L (3.5-5.1)
[2016-10-23 08:26] LABS: FREE T3 3.23 pg/ml (2.77-5.27)
[2016-10-23 08:39] LABS: THYROID STIMULATING HORMONE 1.88 MIU/L (0.465-4.680)
[2016-10-23] MEDS ORDERED: BISACODYL 10 MG SUPP PR ONE (09:00)
[2016-10-23] MEDS: SENNA/DOCUSATE NA (8.6MG/50MG) TAB PO SCH ×2 (09:00→21:00)
[2016-10-23] MEDS: IBUPROFEN 800 MG TAB PO SCH ×4 (09:32→21:06)
--- NOTE | 2016-10-23 12:58 | PN ---
Date/Time of Note Date/Time of Note DATE: 10/23/16 TIME: 12:55 Assessment/Plan VTE Prophylaxis VTE Prophylaxis Intervention: ambulation Lines/Catheters [facility] Peripheral IV Urinary Cath still in place: Yes Reason Cath still needed: skin wounds contaminated by urine Assessment/Plan Chief Complaint/Hosp Course Hospitalist service Subjective: Events noted Objective: Sinus rhythm Physical exam No pallor Regular Clear Mild tender No edema A/P 1. Arrhythmia- bigeminy/trigeminy, asymptomatic stable follow-up. Treat bp/ electrolytes. Cardio consult pending 2. -induced hypertension 3. Postop day 1 section 4. Past tobacco 5. Anemia appears asymptomatic 6. Hypoglycemia Problems: Exam/Review of Systems Vital Signs Vitals Vital Signs Date Time Temp Pulse Resp B/P Pulse Ox O2 Delivery O2 Flow Rate FiO2 10/23/16 12:00 77 10/23/16 11:57 97.8 20 117/76 99 10/23/16 01:58 Room Air Intake and Output 10/22/16 10/22/16 10/23/16 15:00 23:00 07:00 Intake Total 150 ml 350 ml 350 ml Output Total 1400 ml Balance 150 ml 350 ml -1050 ml Results Result Diagram: 10/23/16 0620 10/23/16 0620 Results 24 hrs Laboratory Tests Test 10/22/16 18:26 10/22/16 19:30 10/23/16 06:20 Urine Color LT. YELLOW Urine Clarity SL HAZY Urine pH 7.5 Urine Specific [place] 1.020 Urine Ketones NEGATIVE Urine Nitrite NEGATIVE Urine Bilirubin NEGATIVE Urine Urobilinogen 0.2 E.U./dL Urine Leukocyte Esterase NEGATIVE Urine Microscopic RBC 25-50 Urine Microscopic WBC 0-2 Urine Squamous Epithelial Cells RARE Urine Bacteria RARE Urine Hemoglobin 3+ H Urine Glucose NEGATIVE Urine Total Protein NEGATIVE White Blood Count 5.6 10.2 # Red Blood Count 3.53 L 3.30 L Hemoglobin 11.7 L 10.7 L Hematocrit 33.5 L 31.2 L Mean Corpuscular Volume 94.9 94.5 Mean Corpuscular Hemoglobin 33.1 H 32.4 Mean Corpuscular Hemoglobin Concent 34.9 34.3 Red Cell Distribution Width 13.2 13.2 Platelet Count 144 # 156 Mean Platelet Volume 11.1 H 11.6 H Neutrophils % 63.9 83.7 H Lymphocytes % 31.2 11.1 L Monocytes % 3.6 4.3 Eosinophils % 0.5 0.2 Basophils % 0.4 0.2 Nucleated Red Blood Cells % 0.0 0.0 Neutrophils # 3.6 8.5 H Lymphocytes # 1.7 1.1 Monocytes # 0.2 L 0.4 Eosinophils # 0.0 0.0 Basophils # 0.0 0.0 Nucleated Red Blood Cells # 0.0 0.0 Prothrombin Time 12.0 L Prothrombin Time Ratio 0.9 INR International Normalized Ratio 0.89 Activated Partial Thromboplast Time 26.4 Fibrinogen 392.0 # Sodium Level 136 130 L Potassium Level 4.9 4.3 Chloride Level 106 104 Carbon Dioxide Level 26 21 Anion Gap 9 9 Blood Urea Nitrogen 6 L 7 Creatinine 0.56 0.57 Glucose Level 73 62 #L Uric Acid 5.0 Calcium Level 8.1 L 7.6 L Total Bilirubin 0.3 0.4 Direct Bilirubin 0.00 0.00 Indirect Bilirubin 0.3 0.4 Aspartate Amino Transf (AST/SGOT) 30 41 Alanine Aminotransferase (ALT/SGPT) 53 54 Alkaline Phosphatase 238 H 216 H Total Protein 5.4 L 5.0 L Albumin 3.2 L 2.8 L Globulin 2.20 2.20 Albumin/Globulin Ratio 1.45 1.27 Hemoglobin A1c 4.9 Phosphorus Level 3.5 Magnesium Level 3.5 H Triglycerides Level 424 H Cholesterol Level 187 LDL Cholesterol, Calculated 73 HDL Cholesterol 29 L Cholesterol/HDL Ratio 6.4 Thyroid Stimulating Hormone (TSH) 1.880 Free Triiodothyronine (T3) pg/mL 3.23 Medications Medications Current Medications Lactated Ringer's 1,000 ml @ 125 mls/hr Q8H IV Last administered on 10/23/16 04:06; Admin Dose 125 MLS/HR; Start 10/22/16 at 11:38 Oxytocin/Lactated Ringer's 500 ml @ 0 mls/hr ONCE PRN IV For Hemorrhage Management Last administered on 10/23/16 00:25; Admin Dose 125 MLS/HR; Start 10/22/16 at 12:00 Carboprost Tromethamine (Hemabate) 250 mcg ONCE PRN IM VAGINAL BLEEDING Last administered on 10/23/16 02:49; Admin Dose 250 MCG; Start 10/22/16 at 12:00 Ketorolac Tromethamine (Toradol) 30 mg Q6H PRN IV PAIN; Start 10/22/16 at 17:00 ; Stop 10/23/16 at 16:17 Morphine Sulfate (morphine) 2 mg Q3H PRN IV PAIN LEVEL 1-5; Start 10/22/16 at 17 :00; Stop 10/23/16 at 16:17 Morphine Sulfate (morphine) 4 mg Q3H PRN IV PAIN LEVEL 6-10; Start 10/22/16 at 17:00; Stop 10/23/16 at 16:17 Diphenhydramine HCl (Benadryl) 25 mg Q6H PRN IV ITCHING; Start 10/22/16 at 17:00 ; Stop 10/23/16 at 16:17 Ondansetron HCl 4 mg 4 mg Q6H PRN IV NAUSEA AND/OR VOMITING; Start 10/22/16 at 17:00; Stop 10/23/16 at 16:17 Magnesium Sulfate 500 ml @ 25 mls/hr Q20H IV Last administered on 10/22/16 23: 40; Admin Dose 25 MLS/HR; Start 10/22/16 at 23:00; Stop 10/23/16 at 23:00 Lactated Ringer's 1,000 ml @ 125 mls/hr Q8H IV Last administered on 10/23/16 00:01; Admin Dose 125 MLS/HR; Start 10/23/16 at 00:01 Clindamycin HCl/ Dextrose (Cleocin 900 Mg/ D5W (Pmx)) 50 ml @ 50 mls/hr Q8H IV Last administered on 10/23/16 09:52; Admin Dose 50 MLS/HR; Start 10/23/16 at 00: 30; Stop 10/23/16 at 17:29 Simethicone (Mylicon) 160 mg Q8H PRN PO DISTENSION/GAS/BLOATING; Start 10/23/16 at 00:30 Senna/Docusate Sodium (Senokot-S) 1 tab BID PO ; Start 10/23/16 at 09:00 Diphtheria/ Tetanus/Acell Pertussis (Adacel) 0.5 ml ONCE ONCE IM* ; Start at 09:00; Stop 10/25/16 at 09:01 Measles/Mumps/ Rubella Vaccine Live 0.5 ml 0.5 ml ONCE ONCE SC* ; Start 10/25/16 at 09:00; Stop 10/25/16 at 09:01 Oxytocin/Lactated Ringer's 500 ml @ 0 mls/hr ONCE PRN IV For Hemorrhage Management; Start 10/23/16 at 00:30 Methylergonovine Maleate (Methergine) 0.2 mg ONCE PRN IM VAGINAL BLEEDING; Start 10/23/16 at 00:30 Carboprost Tromethamine (Hemabate) 250 mcg ONCE PRN IM VAGINAL BLEEDING; Start 10/23/16 at 00:30 Misoprostol (Cytotec) 1,000 mcg ONCE PRN [place] VAGINAL BLEEDING; Start 10/23/16 at 00:30 Acetaminophen/ Codeine Phosphate (Tylenol No.3) 2 tab Q4H PRN PO PAIN LEVEL 1-5 ; Start 10/23/16 at 00:30 Oxycodone/ Acetaminophen (Percocet (5/ 325)) 2 tab Q4H PRN PO PAIN LEVEL 6-10; Start 10/23/16 at 00:30 Clindamycin HCl 300 mg 300 mg Q6 PO ; Start 10/24/16 at 18:00 Gentamicin Sulfate (Gentamicin) 50 ml @ 104 mls/hr Q8H IVPB Last administered on 10/23/16 09:52; Admin Dose 104 MLS/HR; Start 10/23/16 at 00:30; Stop 10/23/16 at 16:59 Sodium Biphosphate/ Sodium Phosphate (Fleet Enema) 133 ml DAILY PRN [place] CONSTIPATION; Start 10/23/16 at 00:30 Metoprolol Tartrate (Lopressor) 12.5 mg BID PO Last administered on 10/23/16 03 :40; Admin Dose 12.5 MG; Start 10/23/16 at 03:00 Ibuprofen (Motrin) 800 mg Q8H PO ; Start 10/23/16 at 05:30 ZEESHAN REID MD Oct 23, 2016 12:57
--- NOTE | 2016-10-23 17:42 | PN ---
Date/Time of Note Date/Time of Note DATE: 10/23/16 TIME: 17:40 Assessment/Plan VTE Prophylaxis VTE Prophylaxis Intervention: ambulation Lines/Catheters IV Catheter Type (from Nrs): Peripheral IV Lockett in Place (from Nrs): Yes Assessment/Plan Assessment/Plan S/P C/S POD #1 will advance diet and ambulate Follow with medicine service Subjective 24 Hr Interval Summary No BM passing flatus Constitutional: BM, ambulates, flatus, improved, no complaints, urine output Pain Control: well controlled Exam/Review of Systems Vital Signs Vitals Vital Signs Date Time Temp Pulse Resp B/P Pulse Ox O2 Delivery O2 Flow Rate FiO2 10/23/16 16:09 98.9 85 20 115/78 98 10/23/16 01:58 Room Air Intake and Output 10/22/16 10/22/16 10/23/16 14:59 22:59 06:59 Intake Total 150 ml 350 ml 350 ml Output Total 1400 ml Balance 150 ml 350 ml -1050 ml Exam Free Text/Dictation abdomen: soft BS + incision: covered Constitutional: alert, oriented, well developed Psych: nl mood/affect, no complaints Head: atraumatic, normocephalic Eyes: EOMI, nl conjunctiva, nl lids, nl sclera ENMT: mucosa pink and moist, nl external ears & nose, nl lips & teeth, nl nasal mucosa & septum Neck: non-tender, supple Respiratory: clear to auscultation, normal air movement Cardiovascular: nl pulses, regular rate and rhythm Gastrointestinal: nl liver, spleen, non-tender, soft Musculoskeletal: nl extremities to inspection, nl gait and stance Extremities: normal pulses Neurological: EMPLOYMENT OFFICE CLERK II-XII intact, nl mental status, nl speech, nl strength Skin: nl turgor, rash or lesions Lymph: nl lymph nodes Results Result Diagram: 10/23/1661910/23/1620 RITU AGRAWAL MD Oct 23, 2016 17:42
[2016-10-24] VITALS (13 sets, daily range): BP systolic 105–159; BP diastolic 66–82; PULSE 74–91; RESP 16–19
[2016-10-24] MEDS: IBUPROFEN 800 MG TAB PO SCH ×3 (05:08→22:07)
[2016-10-24 07:04] LABS: ADD SCAN DIFF NO
[2016-10-24 07:10] LABS: BASOPHILS % 0.2 % (0.0-2.0); EOSINOPHILS # 0.1 10^3/ul (0.0-0.5); EOSINOPHILS % 0.9 % (0.0-7.0); HEMATOCRIT 24.2 % (37.0-47.0); HEMOGLOBIN 8.1 g/dl (12.0-16.0); LYMPHOCYTES # 1.4 10^3/ul (0.8-2.9); LYMPHOCYTES % 24.2 % (15.0-51.0); MEAN CORPUSCULAR HEMOGLOBIN 32.3 pg (29.0-33.0); MEAN CORPUSCULAR HGB CONC 33.5 g/dl (32.0-37.0); MEAN CORPUSCULAR VOLUME 96.4 fl (82.0-101.0); MEAN PLATELET VOLUME 11.2 fl (7.4-10.4); MONOCYTE # 0.3 10^3/ul (0.3-0.9); MONOCYTES % 5.9 % (0.0-11.0); NEUTROPHIL # 3.8 10^3/ul (1.6-7.5); NEUTROPHILS % 68.4 % (39.0-77.0); PLATELET COUNT 159 10^3/UL (140-415); RED BLOOD COUNT 2.51 10^6/ul (4.20-5.40); RED CELL DISTRIBUTION WIDTH 13.7 % (11.5-14.5); WHITE BLOOD COUNT 5.6 10^3/ul (4.8-10.8)
[2016-10-24 07:46] LABS: CALCIUM 8.1 mg/dl (8.4-10.2); CREATININE 0.57 mg/dl (0.44-1.00); MAGNESIUM 2.4 mg/dl (1.7-2.5); PHOSPHORUS 3.7 mg/dl (2.5-4.9); POTASSIUM 4.4 mmol/L (3.5-5.1)
[2016-10-24 08:13] LABS: THYROID STIMULATING HORMONE 2.28 MIU/L (0.465-4.680)
[2016-10-24] MEDS: SENNA/DOCUSATE NA (8.6MG/50MG) TAB PO SCH ×2 (09:00→21:00)
[2016-10-24] MEDS: METOPROLOL 25 MG TAB PO SCH ×3 (09:00→22:11)
[2016-10-24] MEDS ORDERED: METOPROLOL 5 MG INJ IV PRN (13:00)
--- NOTE | 2016-10-24 13:24 | PN ---
Date/Time of Note Date/Time of Note DATE: 10/24/16 TIME: 13:22 Assessment/Plan VTE Prophylaxis VTE Prophylaxis Intervention: ambulation Lines/Catheters [facility]from [facility] Saline Lock Urinary Cath still in place: Yes Reason Cath still needed: urinary retention Assessment/Plan Chief Complaint/Hosp Course Hospitalist service S: 10/23 events noted 10/24: No palpitations chest pain shortness of breath or edema. Ambulating tolerating diet. O:Sr; occ PVCs bigeminy PE No pallor Reg Clear Mild tender No edema A/P 1. Arrhythmia- bigeminy/trigeminy/PVCs, asymptomatic stable, check trop/ echo. Treat bp/ electrolytes. -May leave floor with portable monitor. Otherwise, baby may visit this floor. 2. -induced hypertension 3. Pod 2 ; wound care. DC Lockett if ok w OB 4. Past tobacco 5. Anemia appears asymptomatic 6. Hypoglycemia; no further episodes Problems: Exam/Review of Systems Vital Signs Vitals Vital Signs Date Time Temp Pulse Resp B/P Pulse Ox O2 Delivery O2 Flow Rate FiO2 10/24/16 12:19 91 10/24/16 11:45 98.5 16 148/82 100 10/23/16 01:58 Room Air Intake and Output 10/23/16 10/23/16 10/24/16 15:00 23:00 07:00 Intake Total 2000 ml 600 ml Output Total 2000 ml Balance 0 ml 600 ml Results Result Diagram: 10/24/16 0601 10/24/16 0601 Results 24 hrs Laboratory Tests Test 10/24/16 06:01 White Blood Count 5.6 # Red Blood Count 2.51 #L Hemoglobin 8.1 #L Hematocrit 24.2 #L Mean Corpuscular Volume 96.4 Mean Corpuscular Hemoglobin 32.3 Mean Corpuscular Hemoglobin Concent 33.5 Red Cell Distribution Width 13.7 Platelet Count 159 Mean Platelet Volume 11.2 H Neutrophils % 68.4 Lymphocytes % 24.2 Monocytes % 5.9 Eosinophils % 0.9 Basophils % 0.2 Nucleated Red Blood Cells % 0.0 Neutrophils # 3.8 Lymphocytes # 1.4 Monocytes # 0.3 Eosinophils # 0.1 Basophils # 0.0 Nucleated Red Blood Cells # 0.0 Sodium Level 139 Potassium Level 4.4 Chloride Level 107 Carbon Dioxide Level 26 Anion Gap 10 Blood Urea Nitrogen 6 L Creatinine 0.57 Glucose Level 72 Calcium Level 8.1 L Phosphorus Level 3.7 Magnesium Level 2.4 # Thyroid Stimulating Hormone (TSH) 2.280 Medications Medications Current Medications Oxytocin/Lactated Ringer's 500 ml @ 0 mls/hr ONCE PRN IV For Hemorrhage Management Last administered on 10/23/16 00:25; Admin Dose 125 MLS/HR; Start 10/22/16 at 12:00 Carboprost Tromethamine (Hemabate) 250 mcg ONCE PRN IM VAGINAL BLEEDING Last administered on 10/23/16 02:49; Admin Dose 250 MCG; Start 10/22/16 at 12:00 Simethicone (Mylicon) 160 mg Q8H PRN PO DISTENSION/GAS/BLOATING; Start 10/23/16 at 00:30 Senna/Docusate Sodium (Senokot-S) 1 tab BID PO ; Start 10/23/16 at 09:00 Diphtheria/ Tetanus/Acell Pertussis (Adacel) 0.5 ml ONCE ONCE IM* ; Start at 09:00; Stop 10/25/16 at 09:01 Measles/Mumps/ Rubella Vaccine Live 0.5 ml 0.5 ml ONCE ONCE SC* ; Start 10/25/16 at 09:00; Stop 10/25/16 at 09:01 Oxytocin/Lactated Ringer's 500 ml @ 0 mls/hr ONCE PRN IV For Hemorrhage Management; Start 10/23/16 at 00:30 Methylergonovine Maleate (Methergine) 0.2 mg ONCE PRN IM VAGINAL BLEEDING; Start 10/23/16 at 00:30 Carboprost Tromethamine (Hemabate) 250 mcg ONCE PRN IM VAGINAL BLEEDING; Start 10/23/16 at 00:30 Misoprostol (Cytotec) 1,000 mcg ONCE PRN [place] VAGINAL BLEEDING; Start 10/23/16 at 00:30 Acetaminophen/ Codeine Phosphate (Tylenol No.3) 2 tab Q4H PRN PO PAIN LEVEL 1-5 ; Start 10/23/16 at 00:30 Oxycodone/ Acetaminophen (Percocet (5/ 325)) 2 tab Q4H PRN PO PAIN LEVEL 6-10; Start 10/23/16 at 00:30 Clindamycin HCl (Cleocin) 300 mg Q6 PO ; Start 10/24/16 at 18:00 Sodium Biphosphate/ Sodium Phosphate (Fleet Enema) 133 ml DAILY PRN [place] CONSTIPATION; Start 10/23/16 at 00:30 Ibuprofen (Motrin) 800 mg Q8H PO Last administered on 10/24/16 05:08; Admin Dose 800 MG; Start 10/23/16 at 05:30 Metoprolol Tartrate (Lopressor) 25 mg BID PO ; Start 10/24/16 at 13:00 Metoprolol Tartrate (Lopressor) 5 mg Q4H PRN IV HR>110, frequent PVC Last administered on 10/24/16 13:08; Admin Dose 5 MG; Start 10/24/16 at 13:00 ZEESHAN REID MD Oct 24, 2016 13:24
--- NOTE | 2016-10-24 13:46 | CONS ---
DATE OF ADMISSION: 10/22/2016 DATE OF CONSULTATION: 10/24/2016 TYPE OF CONSULTATION: Cardiology. REASON FOR CONSULTATION: PVCs, bigeminy, trigeminy, cardiac arrhythmia. REQUESTING PHYSICIAN: Dr. Reid from the hospitalist service. HISTORY OF PRESENT ILLNESS: Ms. Zepeda is a 41-year-old female, G2, P2, status post deliver y 10/22/2016 due to cholestasis and bile acids in excess of 50. Postoperatively, the patient has be en noted to have recurrent episodes of bigeminy and trigeminy. Given these findings, the patient argueta s been transferred to the telemetry floor and medicine and cardiology consults are requested. At th is time, patient denies chest pain, shortness of breath, palpitations, and prior cardiac pathology. Currently the patient has elevated to stable blood pressures and heart rates in the 70s to 80s and continues to have frequent PVCs at times and patterns of trigeminy. PAST MEDICAL HISTORY: As above in HPI. MEDICATIONS CURRENTLY IN HOSPITAL: 1. Clindamycin. 2. Senna. 3. Motrin. 4. Metoprolol 12.5 mg p.o. b.i.d. 5. Oxytocin. 6. Cytotec. 7. Percocet. ALLERGIES: PENICILLIN. SOCIAL HISTORY: No tobacco, social ETOH prior to . No illicit drug use. FAMILY HISTORY: No history of sudden cardiac or early CAD. REVIEW OF SYSTEMS: As above in HPI. CONSTITUTIONAL: No fevers, chills. PULMONARY: No current shortness of breath. CARDIOVASCULAR: No current palpitations. Positive PVCs on telemetry. GASTROINTESTINAL: No vomiting. GENITOURINARY: Status post delivery. ENDOCRINE: No documented history of any endocrine pathology. NEUROLOGIC: No focal deficits. PHYSICAL EXAMINATION: VITAL SIGNS: Temperature 98.5, blood pressure 140/82, pulse 81, respirations 16, saturating 100%. GENERAL: The patient is alert, awake, in no acute distress. NECK: JVP approximately 8 to 9 cm water. CHEST: Fair air movement throughout. HEART: Regular rate and rhythm, S1, S2, positive ectopic beats. ABDOMEN: Positive bowel sounds, soft. EXTREMITIES: No edema, 1+ pulses bilaterally, posterior tibial. LABORATORIES: As above in HPI, with most recent from today. Sodium 139, potassium 4.4, creatinine of 0.5, BUN 6, white blood cell 5.6, hemoglobin 8.1, platelet count 159. INR 0.89. UA negative. IMAGING STUDIES: As above in HPI. No further imaging studies for my review at this time. ELECTROCARDIOGRAM: Dated 10/22/2016, revealing sinus rhythm at 66, normal axis, normal intervals, w ith frequent PVCs, a pattern of trigeminy and borderline right axis deviation. IMPRESSION: 1. Premature ventricular contractions/trigeminy, rule out cardiac pathology. 2. Abnormal electrocardiogram, assess for acute coronary syndrome. 3. Hypertension, initially -induced. 4. Status post section delivery. 5. Anemia. RECOMMENDATIONS: 1. At this time, would maintain the patient on telemetry monitoring to follow rhythm and rate contr ol closely. 2. Agree with a p.o. beta enrike with uptitration indefinitely to suppress further bouts of PVCs a nd would complete a rule out for myocardial infarction to ensure that the patient's PVCs are not due to any acute coronary syndrome and ____troponins q.6h. x2. 3. We will follow the patient's 2D echo to further risk stratify this patient in the setting of PVC s. 4. Check a fasting lipid panel for general risk stratification. 5. Patient is status post TSH within normal limits. Additionally, continue to assure that the roselia ent has magnesium greater than 2 as you have done and potassium greater than 4. Thank you for allowing me to take part in the care of this patient. I will continue to follow very closely with you with further recommendations to be made as the patient progresses through her [facility] clinical course. Dictated By: KASANDRA GABRIEL/SERGIO Conf#: [id number] DID#: [id number] CC: ZEESHAN REID MD;*EndCC*
[2016-10-24] MEDS ORDERED: IBUPROFEN 800 MG TAB PO SCH (14:00)
--- NOTE | 2016-10-24 15:55 | RADRPT ---
Echocardiogram Report Patient Name: BEKAH NIELSEN Gender: Female Date: 1975 Study Date: 23-Oct-2016 Barrel Repairer: Citlali [facility] Location: 506 Ref. Physician: ZEESHAN REID Quality: Technically Difficult Study Procedures: Transthoracic echocardiogram with complete 2D, M-Mode, and doppler examination. Indications: Irreg HR. 2D/M Mode Doppler Measurement Value Normal Ranges Measurement Value Normal Ranges LVIDd 2D 4.2 3.5 - 5.6 cm AV Peak Alex 1.4 m/sec LVIDs 2D 3.2 2.1 - 4.1 cm AV Peak PG 7.5 mmHg LVPWd 2D 0.9 0.6 - 1.1 cm LVOT Peak Alex 1.2 m/sec IVSd 2D 0.9 0.6 - 1.1 cm LVOT Peak PG 5.6 mmHg AoR Diam 2D 1.8 2.0 - 3.7 cm MV E Peak Alex 0.8 m/sec EDV 2D 78.5 cm3 MV A Peak Alex 0.6 m/sec ESV 2D 34.3 cm3 MV E/A 1.4 LA Dimen 2D 3.4 2.3 - 4.0 cm MV Decel Time 197 msec MV Decel [place] 4 MV E/A 1.4 Findings Left Ventricle: Lower limits of normal systolic function. Normal left ventricular cavity size. Normal left ventricular wall thickness. Ejection fraction is visually estimated at 5055 %. Right Ventricle: Normal right ventricular size. Normal right ventricular systolic function. Left Atrium: The left atrium is normal in size. Right Atrium: The right atrium is normal in size. Mitral Valve: Mild mitral leaflet calcification. Trace mitral regurgitation. Aortic Valve: Normal appearance of the aortic valve. No significant aortic stenosis or insufficiency. Tricuspid Valve: Normal appearance and function of the tricuspid valve with trace physiologic regurgitation. Unable to obtain RVSP due to minimal presence of tricuspid regurgitation. Pericardium: Normal pericardium with no significant pericardial effusion. Aorta: Normal aortic root. IVC: Normal size and normal respiratory collapse consistent with normal right atrial pressure. Conclusions 1.Lower limits of normal systolic function. Normal left ventricular cavity size. Normal left ventricular wall thickness. Ejection fraction is visually estimated at 50-55 %. 2.Mild mitral leaflet calcification. Trace mitral regurgitation. 3.Normal appearance and function of the tricuspid valve with trace physiologic regurgitation. Unable to obtain RVSP due to minimal presence of tricuspid regurgitation. Electronically Signed By: Jann Alejandro 24-Oct-2016 15:54:52 -0700 Patient Name: BEKAH NIELSEN Study Date: 23-Oct-2016 [id number]
[2016-10-24] MEDS: CLINDAMYCIN 300 MG CAP PO SCH ×2 (17:42→23:21)
--- NOTE | 2016-10-24 17:49 | RADRPT ---
Vent Rate: 66 bpm RR Interval: 0 msec IA Interval: 142 msec QRS Duration: 88 msec QT Interval: 398 msec QTC Interval: 417 msec P-R-T [place]: 20 - 91 - 71 degrees Sinus rhythm with frequent premature ventricular complexes Rightward axis Borderline ECG Electronically Signed By: Jovanni Paredes [id number]
--- NOTE | 2016-10-24 18:46 | PN ---
Date/Time of Note Date/Time of Note DATE: 10/24/16 TIME: 18:44 Assessment/Plan VTE Prophylaxis VTE Prophylaxis Intervention: ambulation Lines/Catheters IV Catheter Type (from Nrs): Saline Lock Lockett in Place (from Nrsg): Yes Assessment/Plan Assessment/Plan POD # 2 S/P C/S will advance diet ambulate will D/C from OB service next day, follow care with IM service Subjective 24 Hr Interval Summary had BM Constitutional: BM, ambulates, flatus, improved, no complaints, urine output Pain Control: well controlled Exam/Review of Systems Vital Signs Vitals Vital Signs Date Time Temp Pulse Resp B/P Pulse Ox O2 Delivery O2 Flow Rate FiO2 10/24/16 16:35 88 10/24/16 16:03 98.4 16 109/75 99 10/23/16 01:58 Room Air Intake and Output 10/23/16 10/23/16 10/24/16 15:00 23:00 07:00 Intake Total 2000 ml 600 ml Output Total 2000 ml Balance 0 ml 600 ml Exam Free Text/Dictation see nurses notes Constitutional: alert, oriented, well developed Psych: nl mood/affect, no complaints Head: atraumatic, normocephalic Eyes: EOMI, nl conjunctiva, nl lids, nl sclera ENMT: mucosa pink and moist, nl external ears & nose, nl lips & teeth, nl nasal mucosa & septum Neck: non-tender, supple Respiratory: clear to auscultation, normal air movement Cardiovascular: nl pulses, regular rate and rhythm Gastrointestinal: nl liver, spleen, non-tender, soft Musculoskeletal: nl extremities to inspection, nl gait and stance Extremities: normal pulses Neurological: FACING SLITTER II-XII intact, nl mental status, nl speech, nl strength Skin: nl turgor, rash or lesions Lymph: nl lymph nodes Results Result Diagram: 10/24/1660010/24/16 06 RITU AGRAWAL MD Oct 24, 2016 18:46
[2016-10-25] VITALS (11 sets, daily range): BP systolic 99–124; BP diastolic 52–74; PULSE 72–85; RESP 19–20
[2016-10-25] MEDS: IBUPROFEN 800 MG TAB PO SCH ×2 (05:46→13:41)
[2016-10-25] MEDS: CLINDAMYCIN 300 MG CAP PO SCH ×3 (05:46→18:00)
[2016-10-25 07:12] LABS: CHOL/HDL RATIO 4.9 RATIO
[2016-10-25 07:46] LABS: ALBUMIN 3.2 g/dl (3.3-4.9); ALBUMIN/GLOBULIN RATIO 1.33; BILIRUBIN,INDIRECT 0.2 mg/dl (0-1.1); BILIRUBIN,TOTAL 0.2 mg/dl (0.2-1.3); CALCIUM 8.7 mg/dl (8.4-10.2); CREATININE 0.56 mg/dl (0.44-1.00); PHOSPHORUS 4.6 mg/dl (2.5-4.9); POTASSIUM 4.3 mmol/L (3.5-5.1); TOTAL PROTEIN 5.6 g/dl (6.1-8.1)
[2016-10-25] MEDS: SENNA/DOCUSATE NA (8.6MG/50MG) TAB PO SCH (09:00)
[2016-10-25] MEDS ORDERED: MEASLES,MUMPS,RUBELLA VACCINE INJ SC* ONE (09:00)
[2016-10-25] MEDS ORDERED: DIPHTH/TET/ACEL PERTUSS (ADULT) 0.5 ML VIAL IM* ONE (09:00)
[2016-10-25] MEDS: METOPROLOL 25 MG TAB PO SCH ×2 (09:00→13:32)
--- NOTE | 2016-10-25 09:56 | RADRPT ---
Vent Rate: 75 bpm RR Interval: 0 msec PA Interval: 138 msec QRS Duration: 90 msec QT Interval: 386 msec QTC Interval: 431 msec P-R-T [place]: 10 - 74 - 64 degrees Normal sinus rhythm Normal ECG No previous tracing available for comparison Electronically Signed By: Gabe Mckenzie [id number]
--- NOTE | 2016-10-25 11:35 | PN ---
Date/Time of Note Date/Time of Note DATE: 10/25/16 TIME: 11:31 Assessment/Plan VTE Prophylaxis VTE Prophylaxis Intervention: ambulation Lines/Catheters IV Catheter Type (from Nrsg): Saline Lock Lockett in Place (from Nrsg): Yes Assessment/Plan Assessment/Plan S/P C/S POD # 3 PVCs currently under care of travel attendants and hospitalist team clear from our service for further follow up will follow with hospitalist Subjective 24 Hr Interval Summary has no current complaints had BM no precordial pain does NOT fell PVCs Constitutional: BM, ambulates, flatus, improved, no complaints, urine output Pain Control: well controlled Exam/Review of Systems Vital Signs Vitals Vital Signs Date Time Temp Pulse Resp B/P Pulse Ox O2 Delivery O2 Flow Rate FiO2 10/25/16 08:06 72 10/25/16 07:42 97.8 20 99/52 98 10/23/16 01:58 Room Air Intake and Output 10/24/16 10/24/16 10/25/16 15:00 23:00 07:00 Intake Total 1180 ml Balance 1180 ml Exam Free Text/Dictation incision healing well Constitutional: alert, oriented, well developed Psych: nl mood/affect, no complaints Head: atraumatic, normocephalic Eyes: EOMI, nl conjunctiva, nl lids, nl sclera ENMT: mucosa pink and moist, nl external ears & nose, nl lips & teeth, nl nasal mucosa & septum Neck: non-tender, supple Respiratory: clear to auscultation, normal air movement Cardiovascular: nl pulses, regular rate and rhythm Gastrointestinal: nl liver, spleen, non-tender, soft Musculoskeletal: nl extremities to inspection, nl gait and stance Extremities: normal pulses Neurological: AUTOMATION OPERATOR II-XII intact, nl mental status, nl speech, nl strength Skin: nl turgor, rash or lesions Lymph: nl lymph nodes Results Result Diagram: 10/24/16 0601 10/25/16 0605 RITU AGRAWAL MD Oct 25, 2016 11:35
--- NOTE | 2016-10-25 13:34 | CONS ---
Date/Time of Note Date/Time of Note DATE: 10/25/16 TIME: 13:27 Assessment/Plan Assessment/Plan Chief Complaint/Hosp Course IMPRESSION: 1. Premature ventricular contractions/trigeminy, rule out cardiac pathology.- negative trop x 3/NL EF at echo although lower limits of normal function 2. Abnormal electrocardiogram, assess for acute coronary syndrome. 3. Hypertension, initially -induced.-now with labile HOtn at timesa 4. Status post section delivery. 5. Anemia. Recc: -Tele -serial ecg's -Patient needs to receive BB in atempt to suppress ongoing PVC's/Trigeminy -Keep k>4.0 and Mg>2.0 -Consider stress test given ongoing PVC's/bigeminy Problems: Consultation Date/Type/Reason Admit Date/Time Oct 22, 2016 at 11:24 Initial Consult Date 10/24/2016 Type of Consultation: Cardiology Reason for Consultation PVC/Bigeminy Referring Provider: SHARITA KNOX Exam/Review of Systems Vital Signs Vitals Vital Signs Date Time Temp Pulse Resp B/P Pulse Ox O2 Delivery O2 Flow Rate FiO2 10/25/16 12:13 85 10/25/16 11:57 98.5 20 124/74 98 10/23/16 01:58 Room Air Intake and Output 10/24/16 10/24/16 10/25/16 15:00 23:00 07:00 Intake Total 1180 ml Balance 1180 ml Exam Review of Systems: CONSTITUTIONAL: No fevers, chills. PULMONARY: No sob CARDIOVASCULAR: No chest pain/palpitations GASTROINTESTINAL: No nausea/vomiting. GENITOURINARY: No hematuria/dysuria. MUSCULOSKELETAL: No myagias/arthalgias. PSYCHIATRIC: The patient denies depression. NEUROLOGIC: No weakness Constitutional: alert Psych: no complaints Head: normocephalic ENMT: mucosa pink and moist Neck: jvd (9 cm water), supple Respiratory: diminished breath sounds (at basaes/B) Cardiovascular: regular rate and rhythm Gastrointestinal: non-tender, soft Musculoskeletal: muscle tone (normal) Extremities: edema (none) Neurological: other (No focal deficits) Results Result Diagram: 10/24/16 0601 10/25/16 0605 Results 24 hrs Laboratory Tests Test 10/24/16 18:20 10/25/16 00:51 10/25/16 06:05 Troponin I < 0.012 < 0.012 < 0.012 Sodium Level 140 Potassium Level 4.3 Chloride Level 110 Carbon Dioxide Level 22 Anion Gap 12 Blood Urea Nitrogen 8 Creatinine 0.56 Glucose Level 99 Calcium Level 8.7 Phosphorus Level 4.6 Magnesium Level 2.0 Total Bilirubin 0.2 Direct Bilirubin 0.00 Indirect Bilirubin 0.2 Aspartate Amino Transf (AST/SGOT) 24 Alanine Aminotransferase (ALT/SGPT) 39 Alkaline Phosphatase 170 H Total Protein 5.6 L Albumin 3.2 L Globulin 2.40 Albumin/Globulin Ratio 1.33 Triglycerides Level 259 H Cholesterol Level 183 LDL Cholesterol, Calculated 94 HDL Cholesterol 37 Cholesterol/HDL Ratio 4.9 Medications Medications Current Medications Carboprost Tromethamine (Hemabate) 250 mcg ONCE PRN IM VAGINAL BLEEDING Last administered on 10/23/16 02:49; Admin Dose 250 MCG; Start 10/22/16 at 12:00 Simethicone (Mylicon) 160 mg Q8H PRN PO DISTENSION/GAS/BLOATING; Start 10/23/16 at 00:30 Senna/Docusate Sodium (Senokot-S) 1 tab BID PO ; Start 10/23/16 at 09:00 Methylergonovine Maleate (Methergine) 0.2 mg ONCE PRN IM VAGINAL BLEEDING; Start 10/23/16 at 00:30 Carboprost Tromethamine (Hemabate) 250 mcg ONCE PRN IM VAGINAL BLEEDING; Start 10/23/16 at 00:30 Misoprostol (Cytotec) 1,000 mcg ONCE PRN IA VAGINAL BLEEDING; Start 10/23/16 at 00:30 Acetaminophen/ Codeine Phosphate (Tylenol No.3) 2 tab Q4H PRN PO PAIN LEVEL 1-5 ; Start 10/23/16 at 00:30 Oxycodone/ Acetaminophen (Percocet (5/ 325)) 2 tab Q4H PRN PO PAIN LEVEL 6-10; Start 10/23/16 at 00:30 Clindamycin HCl (Cleocin) 300 mg Q6 PO Last administered on 10/25/16 05:46; Admin Dose 300 MG; Start 10/24/16 at 18:00 Sodium Biphosphate/ Sodium Phosphate (Fleet Enema) 133 ml DAILY PRN IA CONSTIPATION; Start 10/23/16 at 00:30 Ibuprofen (Motrin) 800 mg Q8H PO Last administered on 10/25/16 05:46; Admin Dose 800 MG; Start 10/23/16 at 05:30 Metoprolol Tartrate (Lopressor) 25 mg BID PO Last administered on 10/24/16 22: 11; Admin Dose 25 MG; Start 10/24/16 at 13:00 Metoprolol Tartrate (Lopressor) 5 mg Q4H PRN IV HR>110, frequent PVC Last administered on 10/24/16 13:08; Admin Dose 5 MG; Start 10/24/16 at 13:00 KASANDRA FULLER Oct 25, 2016 13:34
--- NOTE | 2016-10-25 17:56 | PDOCDIS ---
Discharge Instructions DIAGNOSIS Discharge Diagnosis: irregular heart beat CONDITION Patient Condition: Good HOME CARE INSTRUCTIONS: Special Diet: REGULAR; minimal caffiene/ stimulants. ACTIVITY: Activity Restrictions: No Restrictions Slowly Increase Activity Rest between Activity FOLLOW UP/APPOINTMENTS Appointments appt PCP 2wks OB- as directed Call Dr Alejandro for appt/ stress test referral. ZEESHAN REID MD Oct 25, 2016 17:56
--- NOTE | 2016-10-25 17:56 | DS ---
Date/Time of Note Date/Time of Note DATE: 10/25/16 TIME: 17:54 Obstetrical Discharge Record Final Diagnosis Final Diagnosis: Term delivered Other Final Diagnosis S/P C/S + BTL Vaginal Delivery Obstetrical Delivery: Bilateral Tubal Ligation Section Section: Repeat Complications Preg induced Hypertension, Other (cholestasis) Condition on Discharge Physical Assessment Last Vitals: see nurses notes Voiding: Yes Bowel Movement: Yes Breast: Soft, non-tender, Filling Fundus: Firm Abdomen and Incision: soft bs + incision : healing well Episiotomy: NA Calf Tenderness: No Patient Condition: Good RITU AGRAWAL MD Oct 25, 2016 17:56
[2016-10-25] MEDS ORDERED: METO-448 PO (17:57)
[2016-10-25] MEDS ORDERED: SENN-88 PO (17:57)
--- NOTE | 2016-10-25 17:59 | DS ---
Date/Time of Note Date/Time of Note DATE: 10/25/16 TIME: 17:56 Discharge Summary Admission/Discharge Info Admit Date/Time Oct 22, 2016 at 11:24 Discharge Date/Time 10/25/2016 patient signed AMA out Final Diagnosis 37+ weeks gestation cholestasis PVCs PIH Patient Condition: Stable Procedures repeat C/S + BTL Hx of Present Illness 41 y/o female had repeat C/S + BTL and developed PVCs remained under care of [facility] Hospital Course IMPRESSION: 1. Premature ventricular contractions/trigeminy, rule out cardiac pathology.- negative trop x 3/NL EF at echo although lower limits of normal function 2. Abnormal electrocardiogram, assess for acute coronary syndrome. 3. Hypertension, initially -induced.-now with labile HOtn at timesa 4. Status post section delivery. 5. Anemia. Recc: -Tele -serial ecg's -Patient needs to receive BB in atempt to suppress ongoing PVC's/Trigeminy -Keep k>4.0 and Mg>2.0 -Consider stress test given ongoing PVC's/bigeminy Home Meds Reported Medications Nifedipine* (Procardia*) 20 Mg Cap, 20 MG PO Q6, CAP 10/11/16 Ferrous Gluconate (Iron) 1 Tab Tablet, 1 TAB PO DAILY, TAB 06/30/15 Calcium Carbonate* (Calcium Carbonate*) 600 MG Ca Tab, 600 MG PO DAILY, TAB 06/30/15 Multivit/Min/Fol Ac/Iron/Pren* ( S*) 1 Tab Tab, 1 TAB PO DAILY, TAB 06/30/15 Follow-up Plan 4 days in clinic for staple removal Primary Care Provider Vicente Bowers Pending Labs Laboratory Tests Test 10/24/16 18:20 10/25/16 00:51 10/25/16 06:05 Troponin I < 0.012ng/ml (0.00-0.12) < 0.012ng/ml (0.00-0.12) < 0.012ng/ml (0.00-0.12) Sodium Level 140mmol/L (135-144) Potassium Level 4.3mmol/L (3.5-5.1) Chloride Level 110mmol/L (97-110) Carbon Dioxide Level 22mmol/L (21-31) Anion Gap 12 (8-16) Blood Urea Nitrogen 8mg/dl (7-20) Creatinine 0.56mg/dl (0.44-1.00) Glucose Level 99mg/dl (70-220) Calcium Level 8.7mg/dl (8.4-10.2) Phosphorus Level 4.6mg/dl (2.5-4.9) Magnesium Level 2.0mg/dl (1.7-2.5) Total Bilirubin 0.2mg/dl (0.2-1.3) Direct Bilirubin 0.00mg/dl (0.00-0.20) Indirect Bilirubin 0.2mg/dl (0-1.1) Aspartate Amino Transf (AST/SGOT) 24IU/L (15-46) Alanine Aminotransferase (ALT/SGPT) 39IU/L (13-69) Alkaline Phosphatase 170IU/L (42-121) Total Protein 5.6g/dl (6.1-8.1) Albumin 3.2g/dl (3.3-4.9) Globulin 2.40g/dl (1.3-3.2) Albumin/Globulin Ratio 1.33 Triglycerides Level 259mg/dl (0-149) Cholesterol Level 183mg/dl (100-200) LDL Cholesterol, Calculated 94mg/dl HDL Cholesterol 37mg/dl (34-88) Cholesterol/HDL Ratio 4.9RITU AGUIRRE MD Oct 25, 2016 17:59
[2016-10-25] MEDS ORDERED: IBUP800T25 PO (18:02)
[2016-10-25] MEDS ORDERED: Oxycodone/Acetamin (5/325) PO (18:02)
--- NOTE | 2016-10-25 23:29 | DS ---
DATE OF ADMISSION: 10/22/2016 DATE OF DISCHARGE: 10/25/2016 ADDENDUM CONSULTANTS: Dr. Alejandro and Internal Medicine. ADMITTING PHYSICIAN: Ritu Rivers MD HOSPITAL COURSE: Please see original discharge dictation for summary. The patient admitted, underwent section under the care of OB. Baby is being discharged tod ay. Perioperatively during section, patient noted to have bigeminy, PVCs, etc. The patient was transferred to telemetry. Ruled out for acute coronary syndrome by enzymes, EKG, symptoms. Electr olytes were stable. Anemia noted but fairly asymptomatic. No active bleed. Pain was controlled. A 2D echo shows an EF of low normal around 40%. The patient was asked to undergo a stress test. Jovon hamilton refused and stated she would rather go home with her and do an outpatient stress test. Jovon hamilton is aware of the minimal risk of ischemia concerns. At this time, I think she is stable and fit fo r discharge for outpatient stress test. Should she have any anginal palpitation equivalent, she was asked to return to the ER. She is very interested in continuing the care plan as an outpatient. I n fact, if necessary, she will return tomorrow for the stress test. Without any family history of c oronary artery disease, syncope, I think she is stable and fit for discharge. I think it would be i deal for her to go home and be with her child. DIAGNOSES: 1. -induced hypertension, resolved. 2. Anemia. 3. Postoperative section, day about 4. DISCHARGE PLAN: Home. FOLLOWUP: 1. Primary and OB as directed. 2. Dr. Alejandro, referral 1 week for outpatient Lexiscan, treadmill, etc. LABORATORY DATA: White cell count of 5.6, hemoglobin and hematocrit of 8 and 24, MCV 96, platelets of 159. INR 0.8. RPR nonreactive. CMP essentially unremarkable. Protein of 5, albumin of 3. Tri glycerides 259, total of 183, LDL of 94, HDL 37. Troponins negative x3. TSH 1.8. A1c 4.9. DISCHARGE DIET: Regular. ACTIVITY: No heavy lifting. DURABLE MEDICAL EQUIPMENT: None. CODE STATUS: FULL. CONDITION: Stable. BARRIERS TO DISCHARGE: None. PENDING TESTS: None. FUNCTIONAL STATUS: The patient awake, alert, agrees to plan of care. REASON FOR ADMISSION: . ALLERGIES: PENICILLIN: MEDICATIONS: STOPPED MEDICATIONS: Nifedipine. CONTINUED MEDICATIONS: 1. Calcium as needed. 2. Iron 325 daily. 3. Multivitamin as directed. NEW MEDICATIONS: 1. Motrin 800 q.8. 2. Lopressor 25 b.i.d. 3. Senna-S b.i.d. 4. Percocet as needed for pain. Dictated By: ZEESHAN REID MD AC/NTS Conf#: [id number] DID#: [id number] CC: KASANDRA ALEJANDRO MD; RITU RIVERS MD;*EndCC*
== END 2016-10-25 18:20 | disposition home or self-care (01) | DRG 765 ==
LOC: L-D 11:24 → TEL 10-23 01:43 → EDSTATUS 11-08 11:23
PROVIDERS: ADMIT Obstetrics & Gynecology; ATTEND Obstetrics & Gynecology
PROC: 0UB70ZZ Excision of Bilateral Fallopian Tubes, Open Approach (ICD-10-PCS; 2016-10-22)
PROC: 10D00Z1 Extraction of Products of Conception, Low, Open Approach (ICD-10-PCS; principal; 2016-10-22 15:00)
DX: O34.211 Maternal care for low transverse scar from previous cesarean delivery (principal); K83.1 Obstruction of bile duct; O13.4 Gestational [pregnancy-induced] hypertension without significant proteinuria, complicating childbirth; O26.62 Liver and biliary tract disorders in childbirth; O99.43 Diseases of the circulatory system complicating the puerperium; Z3A.37 37 weeks gestation of pregnancy; Z37.0 Single live birth; O99.824 Streptococcus B carrier state complicating childbirth; O99.02 Anemia complicating childbirth; I49.3 Ventricular premature depolarization; I49.8 Other specified cardiac arrhythmias; O90.89 Other complications of the puerperium, not elsewhere classified; E16.2 Hypoglycemia, unspecified; R94.31 Abnormal electrocardiogram [ECG] [EKG]; Z30.2 Encounter for sterilization; Z88.0 Allergy status to penicillin; Z87.891 Personal history of nicotine dependence
CPT/HCPCS: 80048; 80053; 80061; 81001; 83036; 83735; 84100; 84443; 84481; 84484; 84560; 85025; 85384; 85610; 85730; 86592; 86850; 86900; 86901; 88302; 90715; 93005; 93306; 99464; J1580; J2210; J2274; J2370; J2405; J2590; J2765; J3010; J3475; J7120